=== PATIENT | female | born 1985 | race Caucasian/White ===

== ENCOUNTER 2018-04-28 18:27 | Inpatient (IN) | payer OTHER ==
[~2018-04-28] VITALS: Ht 167.6 cm; Wt 61.2 kg
[2018-04-28 18:30] VITALS: BP 133/90
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
--- NOTE | 2018-04-28 18:34 | NUR ---
PT PLACED ON BED DELAY AT THIS TIME
--- NOTE | 2018-04-28 19:17 | NUR ---
PATIENT ASSISTED BY CHARGE NURSE WILMER León AT THIS TIME.
--- NOTE | 2018-04-28 19:32 | NUR ---
Dr. Stern evaluating patient at bedside.
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
[2018-04-28] MEDS ORDERED: diphenhydrAMINE 50 MG/ML VIAL IVP ONE (19:40)
[2018-04-28] MEDS ORDERED: LORazepam 2 MG/ML VIAL IVP ONE (19:40)
[2018-04-28] MEDS ORDERED: HALOPERIDOL IM 5 MG/ML VIAL IM ONE (19:40)
--- NOTE | 2018-04-28 19:45 | NUR ---
PATIENT IN 4 POINT RESTRAINTS. CMS INTACT.
--- NOTE | 2018-04-28 20:00 | NUR ---
PATIENT IN 4 POINT RESTRAINTS. CMS INTACT.
--- NOTE | 2018-04-28 20:00 | NUR ---
PATIENT RESTING AT THIS TIME. NO SIGNS OF DISTRESS.
[2018-04-28 20:01] LABS: BASOPHILS # (AUTO) 0.1 K/uL (0.00-0.22); BASOPHILS % (AUTO) 0.6 % (0.0-2.0); EOSINOPHILS # (AUTO) 0.1 K/uL (0-0.4); EOSINOPHILS % (AUTO) 0.6 % (0.0-4.0); HEMATOCRIT 40.2 % (36-48); HEMOGLOBIN 13.3 g/dL (12.0-16.0); LYMPHOCYTES % (AUTO) 13.1 % (20.5-51.1); MEAN CORPUSCULAR HEMOGLOBIN 27 pg (27-31); MEAN CORPUSCULAR HGB CONC 33 g/dL (33-37); MEAN CORPUSCULAR VOLUME 81.6 fL (80-94); MONOCYTES # (AUTO) 1.1 K/uL (0.8-1.0); MONOCYTES % (AUTO) 7.4 % (1.7-9.3); NEUTROPHILS # (AUTO) 11.8 K/uL (1.8-7.7); NEUTROPHILS % (AUTO) 78.3 % (42.2-75.2); PLATELET COUNT (AUTO) 298 K/uL (140-450); RED BLOOD CELL COUNT(AUTO) 4.92 MIL/uL (4.20-5.40); RED CELL DISTRIBUTION WIDTH 14.7 % (11.6-13.7)
--- NOTE | 2018-04-28 20:10 | NUR ---
Note prosperone in ED - 04/28/18 at 2200 by MEDDCV PATIENT YELLING OBSCENITIES AT ER STAFF. ER MADE AWARE.
--- NOTE | 2018-04-28 20:14 | NUR ---
PT MOVED TO BED 5
--- NOTE | 2018-04-28 20:15 | NUR ---
PATIENT IN 4 POINT RESTRAINTS. CMS INTACT.
[2018-04-28 20:24] LABS: PROTHROMBIN TIME 10.7 secs (10.8-13.4)
[2018-04-28 20:28] LABS: ALBUMIN 4.8 g/dL (3.4-5.0); ANION GAP 16.6 (8-16); ASPARTATE AMINOTRANSFERASE 29 U/L (15-37); CARBON DIOXIDE 23.6 mmol/L (21-32); CHLORIDE 103 mmol/L (98-107); CREATININE 0.9 mg/dL (0.6-1.3); GFR ARICAN-AMERICAN 92 mL/min (>90); GLUCOSE 106 mg/dL (74-106); POTASSIUM 3.2 mmol/L (3.5-5.1); SODIUM SERUM 140 mmol/L (136-145); TOTAL BILIRUBIN 0.6 mg/dL (0.0-1.0); UREA NITROGEN, BLOOD 24 mg/dL (7-18)
[2018-04-28 20:28] LABS: BARBITURATE, URINE NEG. ng/ml (NEG <=200); BENZODIAZEPINE, URINE NEG. ng/mL (NEG <=200); CANNABINOID, URINE NEG. ng/mL (NEG <=50); COCAINE, URINE NEG. ng/mL (NEG <=300); OPIATE, URINE NEG. ng/mL (NEG <=2000); PHENCYCLIDINE SCREEN,URINE NEG. ng/mL (NEG <=25)
[2018-04-28 20:30] LABS: ACETAMINOPHEN < 0.5 ug/ml (10-30); SALICYLATE < 2.8 mg/dL (2.8-20.0)
--- NOTE | 2018-04-28 20:30 | NUR ---
PATIENT IN 4 POINT RESTRAINTS. CMS INTACT.
--- NOTE | 2018-04-28 20:30 | NUR ---
PATIENT RESTING AT THIS TIME. NO SIGNS OF DISTRESS.
--- NOTE | 2018-04-28 20:45 | NUR ---
PATIENT IN 4 POINT RESTRAINTS. CMS INTACT.
--- NOTE | 2018-04-28 21:00 | NUR ---
PATIENT IN 4 POINT RESTRAINTS. CMS INTACT.
--- NOTE | 2018-04-28 21:00 | NUR ---
PATIENT RESTING AT THIS TIME. NO SIGNS OF DISTRESS.
--- NOTE | 2018-04-28 21:15 | NUR ---
PATIENT IN 4 POINT RESTRAINTS. CMS INTACT.
--- NOTE | 2018-04-28 21:30 | NUR ---
PATIENT IN 4 POINT RESTRAINTS. CMS INTACT.
--- NOTE | 2018-04-28 21:31 | NUR ---
PATIENT RESTING AT THIS TIME. NO SIGNS OF DISTRESS.
--- NOTE | 2018-04-28 21:45 | NUR ---
PATIENT IN 4 POINT RESTRAINTS. CMS INTACT.
--- NOTE | 2018-04-28 22:00 | NUR ---
PATIENT RESTING AT THIS TIME. NO SIGNS OF DISTRESS.
--- NOTE | 2018-04-28 22:04 | NUR ---
PER ORDER FROM RN PT REMOVED FROM 4 POINT RESTRAINTS
--- NOTE | 2018-04-28 22:05 | NUR ---
PATIENT SLEEPING, CMS INTACT.
--- NOTE | 2018-04-28 23:26 | NUR ---
[facility]: [facility], spoke with Grace, no beds available, packet was faxed. [facility], spoke with Piedad, no beds available, packet was faxed. [facility], spoke with Johana, no beds available. [facility], spoke with Radha, no beds available. [facility], spoke with Kylie, no beds available, packet was faxed. [facility], spoke with Silvio, no beds available. [facility], spoke with Fernando, no beds available.
--- NOTE | 2018-04-28 23:37 | NUR ---
PT TAKEN TO CT
--- NOTE | 2018-04-28 23:59 | NUR ---
PT RETURN FROM CT
[2018-04-29] MEDS ORDERED: ONDANSETRON 4 MG/2 ML VIAL IVP PRN (00:30)
[2018-04-29] MEDS ORDERED: MORPHINE SULFATE 2 MG/ML SYR IVP PRN (00:30)
[2018-04-29] MEDS ORDERED: LORazepam 2 MG/ML VIAL IVP PRN (00:30)
[2018-04-29] MEDS ORDERED: ACETAMINOPHEN 325 MG TAB PO PRN (00:30)
--- NOTE | 2018-04-29 00:50 | NUR ---
RECEIVED REPORT FROM ED NURSE, WILL TRANSPORT PT WITH EMT TO ICU BED 6
--- NOTE | 2018-04-29 00:53 | NUR ---
Pt transferred to ICU 6 via BED WITH MERLYN RAMOS. REPORT GIVEN BY MERLYN SORIA TO FIELD NATURALISTMERLYN RAMOS.
[2018-04-29 00:55] VITALS: BP 101/56
--- NOTE | 2018-04-29 00:55 | NUR ---
PT SEDATED, AROUSABLE TO TOUCH. GCS 9 PERRL SLUGGISH 3+ NSR ON MONITOR, S1 S2 HEARD, NO EDEMA NOTED. LUNGS CLEAR TO AUSCULTATION. ABD SOFT NON DISTENDED. SKIN INTACT. PERIPHERAL IV TO L HAND SALINE LOCK. PER ED NURSE, BELONGINGS WITH SECURITY. PT ON 1:1 SUPERVISION FOR 5150 HOLD. BED LOCKED IN LOWEST POSITION, ALL SAFETY PRECAUTIONS ASSESSED AND IN PLACE. AWAITING PSYCH FACILITY PLACEMENT. NO S/S OF ACUTE DISTRESS NOTED. WILL CONTINUE TO OBSERVE.
--- NOTE | 2018-04-29 02:38 | NUR ---
PT ASLEEP, APPEARS COMFORTABLE IN BED, NO S/S OF ACUTE DISTRESS NOTED. WILL CONTINUE TO OBSERVE.
--- NOTE | 2018-04-29 03:00 | NUR ---
PT ASLEEP, AROUSABLE. DENIES SUICIDAL IDEATION @ THIS TIME. NO COMBATIVE BEHAVIOR NOTED.
--- NOTE | 2018-04-29 04:00 | NUR ---
PT ASLEEP, RESTING COMFORTABLY. VSS WNL. NO S/S OF ACUTE DISTRESS NOTED. WILL CONTINUE TO OBSERVE.
--- NOTE | 2018-04-29 06:00 | NUR ---
PT AWAKE, WANTING TO DRINK WATER. DENIES SUICIDAL IDEATION NO COMBATIVE BEHAVIOR. PT IS CALM DENIES PAIN @ THIS TIME.
--- NOTE | 2018-04-29 07:05 | NUR ---
RECEIVED REPORT FROM DAY SHIFT NURSE. PT SITTING IN BED, EATING. NO C/O PAIN. PT IS CALM AND COOPERATIVE AT THIS TIME. NO RESP DISTRESS. PT IS ON 5150 HOLD. 1:1 SITTER IN THE ROOM. SAFETY PRECAUTION IN PLACE. Addendum: 04/29/18 at 1937 by Sol Sow RN DISCARD ABOVE NOTE. WRONG TIME.
--- NOTE | 2018-04-29 07:05 | NUR ---
RECEIVED REPORT FROM RISK AND INSURANCE CONSULTANT RN FOR CONTINUITY OF CARE. PATIENT IS AAOX2, SEDATED FROM ATIVAN PER RISK AND INSURANCE CONSULTANT RN. VS STABLE, DENIES ANY PAIN. BREATHING IS UNLABORED AND EVEN. BILATERAL LUNG SOUNDS CLEAR, S1 AND S2 HEARD. PATIENT SKIN IS INTACT, WARM AND DRY. SHE HAS A PERIPHERAL IV SITE TO LEFT HAND IN PLACE. HOB IS SEMI-FOWLERS, BED LOCKED IN LOWEST POSITION. PATIENT IS ON 1:1 SUPERVISION FOR 5150 HOLD. ALL SAFETY PRECAUTIONS ASSESSED AND IN PLACE. NO SIGNS OF DISTRESS NOTED. WILL CONTINUE TO MONITOR
--- NOTE | 2018-04-29 07:30 | NUR ---
ENODRSED PT TO DAY SHIFT. FOR CONTINUITY OF CARE
--- NOTE | 2018-04-29 07:39 | NUR ---
SPOKE WITH DR. PRECIADO REGARDING PSYCH CONSULT FOR PATIENT. STATES THAT HE WILL CONTACT DR. DEVRIES FOR CONSULT.
--- NOTE | 2018-04-29 07:43 | NUR ---
PROVIDED PATIENT WITH BREAKFAST TRAY, PATIENT STATES THAT SHE IS NOT HUNGRY AT THIS MOMENT SHE JUST WANTS THE COFFEE.
[2018-04-29 08:00] VITALS: BP 116/78
[2018-04-29] MEDS: ENOXAPARIN 40 MG/0.4 ML SYR SUBQ SCH (08:18)
--- NOTE | 2018-04-29 08:30 | NUR ---
PATIENT HAS BEEN SCREENED AND CATEGORIZED LOW NUTRITION RISK. PATIENT WILL BE SEEN WITHIN 7 DAYS OF ADMISSION. 05/05/[address]
--- NOTE | 2018-04-29 08:31 | NUR ---
DR. PRECIADO IN TO SEE AND EXAMINE PATIENT, UPDATED ON PATIENT'S CONDITION, AWARE THAT PATIENT WAS MEDICALLY CLEARED IN ER BY DR. LAL HOWEVER WAS NOT ABLE TO BE PLACE IN PSYCH FACILITY, DISCUSSED THAT DR. RAZO WILL BE COMING FOR PSYCH EVAL. WILL FOLLOW UP ON ANY ORDERS.
--- NOTE | 2018-04-29 08:50 | NUR ---
[facility] aware patient is in unit. will continue to look for placement throughout shift. will update unit when new information has been received.
--- NOTE | 2018-04-29 09:10 | NUR ---
DR. RAZO TO SEE PATIENT FOR PSYCH EVAL, STATES PATIENT STILL NEEDS TO BE ON 5150 HOLD, WILL FOLLOW UP ON ANY ORDERS.
--- NOTE | 2018-04-29 10:18 | NUR ---
ASSISTED PATIENT TO BEDSIDE COMMODE, PATIENT HAS A VERY UNSTEADY GAIT. PATIENT WAS ABLE TO VOID AND HAD 1 LARGE BM. NO SIGNS OF DISTRESS NOTED. WILL CONTINUE TO MONITOR.
--- NOTE | 2018-04-29 11:30 | NUR ---
Specialty Molder Notes: I attempted to meet with patient during screen to discuss, confirm, and gather patient's additional information; and or to asses patient's needed services upon discharge. Patient was not awake and attempted to wake her up and she open her eyes however; turn around and fall asleep again. Patient was unable to verbalized and express needs.
--- NOTE | 2018-04-29 12:08 | NUR ---
PROVIDED PATIENT WITH LUNCH TRAY, PATIENT TOLERATED WELL. NO SIGNS OF DISTRESS NOTED, ALL SAFETY PRECAUTIONS IN PLACE.
--- NOTE | 2018-04-29 12:30 | NUR ---
PATIENT PULLED OUT IV, SITE COVERED WITH DRESSING. NO SIGNS OF DISTRESS NOTED,VS STABLE. WILL CONTINUE TO MONITOR
--- NOTE | 2018-04-29 12:45 | NUR ---
No updates from contacted facilities at this time. [facility] in process of reviewing charts s/w Beata. No Bed vacancies at the following facilities: [facility] s/w Jorge [facility] s/w [facility] s/[facility] s/w Den[facility] s/w Tiffany will continue to look for placement throughout shift.
--- NOTE | 2018-04-29 13:31 | NUR ---
CM NOTE ADMISSION REVIEW DONE. INITIAL REVIEW FAXED TO [facility] [phone] MERRY # [phone]
--- NOTE | 2018-04-29 13:59 | NUR ---
PATIENT REMOVED FALL RISK ARM BAND, STATES THAT SHE DOESN'T WANT IT ON. EDUCATED ON FALL RISK SAFETY, HOWEVER PATIENT REFUSED TO PUT FALL RISK ARM BAND. FALL RISK SIGNS ARE IN PLACE, PATIENT HAS ON YELLOW GOWN AND YELLOW SOCKS PER PROTOCOL. WILL CONTINUE TO MONITOR
--- NOTE | 2018-04-29 14:09 | NUR ---
PATIENT IS AWAKE AND EATING CRACKERS AND APPLE JUICE, NO SIGNS OF DISTRESS NOTED. WILL CONTINUE TO MONITOR
--- NOTE | 2018-04-29 15:00 | NUR ---
Real Estate Lawyer Notes: I attempted to call Patient's mother Alba Lackey at to discuss and gather Patient's additional information. Patient's mother was not available and I left her a voice mail MSG with my direct contact number and a request for a call back.
--- NOTE | 2018-04-29 15:04 | NUR ---
CALLED DR. PRECIADO REGARDING PATIENT PULLING OUT IV, STATES THAT IT IS OK TO CHANGE PRN ATIVAN IVP TO PRN ATIVAN PO.
[2018-04-29] MEDS: LORazepam 1 MG TAB PO PRN ×2 (15:20→21:21)
--- NOTE | 2018-04-29 15:23 | NUR ---
PATIENT WAS OBSERVED PACING ROOM, STATING THAT SHE WANTS TO GO HOME, DOES NOT FEEL COMFORTABLE IN THE BED. GIVEN PRN ATIVAN 1MG PO, TOLERATES WELL. WILL CONTINUE TO MONITOR
--- NOTE | 2018-04-29 15:50 | NUR ---
TRANSFERRED PATIENT VIA WHEELCHAIR TO [facility], PATIENT PRESENTS NO SIGNS OF DISTRESS DURING TRANSFER. ENDORSED BEDSIDE REPORT TO [facility] RN FOR CONTINUITY OF CARE. PROVIDED PATIENT WITH DINNER TRAY, NO SIGNS OF DISTRESS NOTED.
[2018-04-29 16:00] VITALS: BP 121/71
[2018-04-29 18:00] VITALS: BP 132/85
--- NOTE | 2018-04-29 18:00 | NUR ---
ASSUMED CARE FROM ICU -RN. PT AAOX3. NO SOB NOTED. NO C/O PAIN AT THIS TIME. WITH ONE IS TO ONE SITTER AT THE BEDSIDE FOR 5150 HOLD. PT EATING DINNER. CALM. NO SIGNS OF HARMING SELF OR OTHER PEOPLE AT THIS TIME. WILL CONTINUE TO MONITOR.
--- NOTE | 2018-04-29 19:05 | NUR ---
RECEIVED REPORT FROM DAY SHIFT NURSE. PT SITTING IN BED, EATING. NO C/O PAIN. PT IS CALM AND COOPERATIVE AT THIS TIME. NO RESP DISTRESS. PT IS ON 5150 HOLD. 1:1 SITTER IN THE ROOM. SAFETY PRECAUTION IN PLACE.
--- NOTE | 2018-04-29 19:13 | NUR ---
PT AWAKE, NO SOB NOTED. NO COMPLAINTS MADE AT THIS TIME. ENDORSED TO NEXT SHIFT NURSE FOR CONTINUITY OF CARE.
--- NOTE | 2018-04-29 19:30 | NUR ---
ASSISTED PT TO BATHROOM AND BACK TO BED. NO DISTRESS NOTED.
--- NOTE | 2018-04-29 21:22 | NUR ---
PT WENT TO THE BATHROOM WITH ASSIST. PT WENT BACK TO BED, AGITATED. ATIVAN 1 MG PO GIVEN.
--- NOTE | 2018-04-29 22:09 | NUR ---
PT STATED SHE WANTED TO GO TO THE BATHROOM TO URINATE. PT ASSISTED BY 2 NURSES. PT BEING RUDE TO NURSES. PT BACK TO BED.
--- NOTE | 2018-04-29 23:50 | NUR ---
PT SLEEPING. NO S/S OF PAIN. NO S/S OF RESP DISTRESS. 1:1 SITTER IN THE ROOM.
[2018-04-30] VITALS: BP 127/66
--- NOTE | 2018-04-30 01:10 | NUR ---
PT WAS AGITATED AND HOSTILE TO NURSES. TRYING TO GET OUT OF THE BED. PT HAS UNSTEADY GAIT. TRIED TO TALK TO PT BUT SHE'S NOT LISTENING AND GOT ANGRY WITH NURSES. WILL PAGE DR. PRECIADO.
--- NOTE | 2018-04-30 01:15 | NUR ---
KULWINDER PRECIADO. DR. HANSON DELI MANAGER. ORDERED HALDOL 5MG IM Q6HRS PRN FOR AGITATION.
--- NOTE | 2018-04-30 01:25 | NUR ---
PT LYING IN BED AND CALM AT THIS TIME. SAFETY PRECAUTION IN PLACE. 1:1 SITTER IN THE ROOM.
--- NOTE | 2018-04-30 01:30 | NUR ---
AWARE OF PT'S POTASSIUM LEVEL 3.2. WILL ENDORSED TO DAY SHIFT NURSE FOR DR. PRECIADO.
--- NOTE | 2018-04-30 01:37 | NUR ---
PT SLEEPING. NO S/S OF DISTRESS NOTED.
[2018-04-30] MEDS: HALOPERIDOL IM 5 MG/ML VIAL IM PRN ×2 (02:13→10:11)
--- NOTE | 2018-04-30 02:13 | NUR ---
PT WAS SCREAMING,CURSING, GOT OUT OF THE BED AND TRIED TO GET OUT OF THE ROOM. REFUSED TO GO BACK TO BED. SECURITY CAME IN. ASSISTED PT BACK TO BED. HALDOL 5 MG IM GIVEN.
--- NOTE | 2018-04-30 02:30 | NUR ---
PT SITTING QUIETLY ON BED. NO C/O PAIN OR SOB. SAFETY PRECAUTION IN PLACE.
--- NOTE | 2018-04-30 03:00 | NUR ---
PT IN BED, SLEEPING. RESP EVEN AND UNLABORED. NO S/S OF PAIN.
--- NOTE | 2018-04-30 05:20 | NUR ---
PT SLEEPING. NO S/S OF OF RESP DISTRESS.
--- NOTE | 2018-04-30 07:12 | NUR ---
PT SLEEPING. NO S/S OF DISTRESS. ENDORSED PT TO DAY SHIFT NURSE. PT IN STABLE CONDITION.
--- NOTE | 2018-04-30 07:30 | NUR ---
RECEIVED PT FROM PM NURSE, PT SLEEPING BUT ABLE TO OPEN EYES WHEN DOING INITIAL ASSESSMENT. ROOM AIR, NO S/S OF RESPIRATORY DISTRESS NOTED, LUNG SOUND CLEAR,PT ABLE TO MOVE ALL HER EXTREMITIES BUT MODERATE WEAKNESS NOTED. PT IS 1:1 SITTER, SAFETY PRECAUTION IN PLACE, WILL CONTINUE TO MONITOR.
[2018-04-30 08:00] VITALS: BP 132/62
--- NOTE | 2018-04-30 08:00 | NUR ---
PT SITTING IN BED AND EATING BREAKFAST. PT DRINK ORANGE JUICE AND SODA ONLY.
[2018-04-30] MEDS: ENOXAPARIN 40 MG/0.4 ML SYR SUBQ SCH (09:20)
--- NOTE | 2018-04-30 09:36 | NUR ---
DR. PRECIADO IN TO SEE PT, MADE HIM AWARE OF K LEVEL 3.2
--- NOTE | 2018-04-30 10:00 | NUR ---
PT WOKE UP AND STATED SHE NEEDS TO GO BATHROOM, OFFERED PT BED PEREZ, PT REFUSED. ASSISTED PT TO BATHROOM WITH ORSSI, AFTER PT CAME BACK TO HER ROOM , PT REFUSED TO GO TO BED AND YELLED AT NURSE" GO GET MY CLOTHES, I WANT TO GO HOME, I DO NOT WANT TO WEAR THE HOSPITAL SHIT, GIVE ME ORANGE JUICE ". ROSSI GOT ONE ORANGE JUICE FOR PT. Addendum: 04/30/18 at 1023 by Wendi Gomes RN HALDOL GIVEN TO PT PER ORDER AT 1011
--- NOTE | 2018-04-30 10:01 | NUR ---
PT KICKED STUDENT NURSE WHILE ASSISTING PT TO BED. STUDENT NURSE WAS NOT HURT.
[2018-04-30] MEDS ORDERED: POTASSIUM CHLORIDE 10 MEQ TABER PO SCH (10:40)
--- NOTE | 2018-04-30 11:37 | NUR ---
40 MG K DUR PO GIVEN TO PT. PT TOLERATED WELL
--- NOTE | 2018-04-30 13:45 | NUR ---
PT IS AWAKE, ROSSI ASSISTED PT TO BATHROOM.
--- NOTE | 2018-04-30 13:50 | NUR ---
PT SITTING AT BEDSIDE TO EAT LUNCH. PT DOES NOT HAVE A GOOD APPETITE.
[2018-04-30 15:44] VITALS: BP 117/71
--- NOTE | 2018-04-30 16:00 | NUR ---
PT SLEEPING, ABLE TO WAKE UP WHEN ASSESS PATIENT, NO S/S OF RESPIRATORY DISTRESS NOTED.
--- NOTE | 2018-04-30 18:12 | NUR ---
PT SLEEPING, ABLE TO WAKE UP WHEN ASSESS PATIENT, NO S/S OF RESPIRATORY DISTRESS NOTED.
--- NOTE | 2018-04-30 18:45 | NUR ---
PT'S MOTHER AND BROTHER IN TO SEE PT, UPDATED PT'S CONDITION. MADE THEM AWARE WE ARE WAITING FOR PLACEMENT. TOLD PT'S MOTHER TO WAKE UP PT TO TALK TO HER, PT'S MOTHER STATED " SHE IS UPSET TO ME, JUST TELL HER I CAME HERE BUT SHE WAS SLEEPING".
--- NOTE | 2018-04-30 19:14 | NUR ---
RECEIVED REPORT FROM DAY SHIFT NURSE DILAN Carrero RN AT BEDSIDE. PT SLEEPING IN BED- ON 5150 HOLD. PER DAY SHIFT NURSE PT IS AOX4. ON ROOM AIR, NO IV SITE. NO S/S OF RESPIRATORY DISTRESS OR DISCOMFORT NOTED AT THIS TIME. BED IN LOWEST POSITION, BED BREAKS ON, BED ALARM ON, FALL PRECAUTIONS IN PLACE- UNSTEADY DUE TO MEDICATIONS. BED SIDE TABLE AND SITTER WITHIN REACH. PT WAITING FOR PLACEMENT- MOTHER TRAVIS REQUESTED SHE BE CALLED SOON PLACED TO KNOW WHERE HER DAUGHTER WILL BE AT. WILL CONTINUE TO MONITOR.
[2018-04-30 20:00] VITALS: BP 123/74
--- NOTE | 2018-04-30 20:00 | NUR ---
VITAL SIGNS TAKEN AND TOLERATED WELL. NO S/S OF RESPIRATORY DISTRESS OR DISCOMFORT NOTED AT THIS TIME. WILL CONTINUE TO MONITOR.
--- NOTE | 2018-04-30 22:00 | NUR ---
PT CONTINUES TO SLEEP IN BED. NO S/S OF RESPIRATORY DISTRESS OR DISCOMFORT NOTED AT THIS TIME. WILL CONTINUE TO MONITOR.
[2018-05-01] VITALS: BP 124/78
--- NOTE | 2018-05-01 | NUR ---
VITAL SIGNS TAKEN AND TOLERATED WELL. ASSISTED PT TO USE RESTROOM. PT URINATED AND SMALL WATERY STOOL. GOWN AND UNDERWEAR WERE SOILED. ASSISTED PT WITH NEW GOWN AND UNDERWEAR. ASSISTED PT BACK TO BED. NO S/S OF RESPIRATORY DISTRESS OR DISCOMFORT NOTED AT THIS TIME. WILL CONTINUE TO MONITOR.
--- NOTE | 2018-05-01 02:00 | NUR ---
PT CONTINUES TO SLEEP. NO S/S OF RESPIRATORY DISTRESS OR DISCOMFORT NOTED AT THIS TIME. WILL CONTINUE TO MONITOR.
--- NOTE | 2018-05-01 04:00 | NUR ---
PT CONTINUES TO SLEEP. NO S/S OF RESPIRATORY DISTRESS OR DISCOMFORT NOTED AT THIS TIME. WILL CONTINUE TO MONITOR.
--- NOTE | 2018-05-01 05:20 | NUR ---
ASSISTED PT TO THE RESTROOM. PT AMBULATING WITH MINIMAL HELP. PT REQUESTED ORANGE JUICE AND WAS PROVIDED. PT ASKING WHAT TIME IT IS AND WHEN BREAKFAST ARRIVES. REMINDED PT OF FRUIT CUP AT BEDSIDE AND PT DECIDED TO EAT IT WELL. PT CONTINUES TO SLEEP. NO S/S OF RESPIRATORY DISTRESS OR DISCOMFORT NOTED AT THIS TIME. WILL CONTINUE TO MONITOR.
--- NOTE | 2018-05-01 06:00 | NUR ---
PT CONTINUES TO SLEEP. NO S/S OF RESPIRATORY DISTRESS OR DISCOMFORT NOTED AT THIS TIME. WILL CONTINUE TO MONITOR.
--- NOTE | 2018-05-01 06:38 | NUR ---
ASSISTED PT TO THE RESTROOM. PT URINATED AND HAD ANOTHER SMALL WATERY STOOL. PT BACK IN BED. NO S/S OF RESPIRATORY DISTRESS OR DISCOMFORT NOTED AT THIS TIME. WILL CONTINUE TO MONITOR.
--- NOTE | 2018-05-01 07:30 | NUR ---
ENDORSED PT CARE TO DAY SHIFT NURSE SITAL-RN FOR CONTINUITY OF CARE.
[2018-05-01 08:00] VITALS: BP 122/80
[2018-05-01 08:03] LABS: BASOPHILS % (AUTO) 0.6 % (0.0-2.0); EOSINOPHILS # (AUTO) 0.3 K/uL (0-0.4); EOSINOPHILS % (AUTO) 4.4 % (0.0-4.0); HEMATOCRIT 41.9 % (36-48); LYMPHOCYTES # (AUTO) 2.7 K/uL (2.5-16.5); LYMPHOCYTES % (AUTO) 40.4 % (20.5-51.1); MEAN CORPUSCULAR HEMOGLOBIN 28 pg (27-31); MEAN CORPUSCULAR HGB CONC 33 g/dL (33-37); MEAN CORPUSCULAR VOLUME 83.2 fL (80-94); MONOCYTES # (AUTO) 0.4 K/uL (0.8-1.0); MONOCYTES % (AUTO) 6.7 % (1.7-9.3); NEUTROPHILS # (AUTO) 3.2 K/uL (1.8-7.7); NEUTROPHILS % (AUTO) 47.9 % (42.2-75.2); PLATELET COUNT (AUTO) 265 K/uL (140-450); RED BLOOD CELL COUNT(AUTO) 5.04 MIL/uL (4.20-5.40); RED CELL DISTRIBUTION WIDTH 14.6 % (11.6-13.7); WHITE BLOOD COUNT (AUTO) 6.6 K/uL (4.8-10.8)
--- NOTE | 2018-05-01 08:30 | NUR ---
ASSISTED PT TO THE BATHROOM. VOIDED WITHOUT ANY DIFFICULTY. NEEDS ASSISTANCE WHEN AMBULATING. UNSTEADY ON HER FEET. REMINDED PT NOT TO GET OUT OF BED WITHOUT ASSISTANCE.
[2018-05-01] MEDS: ENOXAPARIN 40 MG/0.4 ML SYR SUBQ SCH (09:50)
--- NOTE | 2018-05-01 11:15 | NUR ---
PSYCH. REEVAL. DONE BY DR. DEVRIES AT BEDSIDE. OFF 5150 NOW.
--- NOTE | 2018-05-01 11:45 | NUR ---
CALLED PT'S MOTHER TRAVIS. SPOKE TO DR. DEVRIES RE PT'S CONDITION.
--- NOTE | 2018-05-01 12:00 | NUR ---
SPOKE TO PT'S MOTHER STATES THAT SHE DOES NOT WANT THE PT. TO GO HOME UNTIL SHE'S BEEN STARTED ON HER PSYCH. MEDS. AND THAT SHE CAN BE SURE THAT PT. WILL BE GIVEN PRESCRIPTIONS GOOD FOR AT LEAST FOR 1 MONTH.
--- NOTE | 2018-05-01 12:15 | NUR ---
CHARGE NURSE NERY MIRAMONTES AND NOTIFIED DR. PRECIADO RE: DR. DEVRIES'S RECOMMENDATIONS AND CONVERSATION WITH PT'S MOTHER.
[2018-05-01] MEDS ORDERED: FLUoxetine 20 MG CAP PO SCH (13:05)
[2018-05-01] MEDS ORDERED: METHOCARBAMOL 500 MG TAB PO SCH (13:05)
[2018-05-01] MEDS ORDERED: traZODone 50 MG TAB PO SCH (13:20)
--- NOTE | 2018-05-01 13:30 | NUR ---
ADMINISTERED MEDS ORDERED TO PT. CALM AND COOPERATIVE. SEEN BY . PT LYING ON HER BED. NO SIGN OF DISTRESS. TOLERATED MEDS WELL. WILL CONTINUE TO MONITOR PT.
[2018-05-01 16:37] VITALS: BP 122/66
--- NOTE | 2018-05-01 17:00 | NUR ---
CHECKED ON PT. SLEEPING IN HER BED. NO SIG OF DISTRESS. PT ON 1:1 SITTER. OBSERVING PT. WILL CONTINUE TO MONITOR PT.
--- NOTE | 2018-05-01 19:15 | NUR ---
ENDORSED PT TO PM NURSE. PT IN STABLE CONDITION.
--- NOTE | 2018-05-01 19:16 | NUR ---
RECEIVED REPORT FROM DAY SHIFT NURSE CARMINA-RN AT BEDSIDE. PT RESTING IN BED. AOX3, ON ROOM AIR WITH NO IV SITE. DISCUSSED PLAN OF CARE AND PT VERBALIZED UNDERSTANDING. NO S/S OF RESPIRATORY DISTRESS OR DISCOMFORT NOTED AT THIS TIME. BED IN LOWEST POSITION, BED BREAKS ON, BOTH SIDE RAILS UP. BED SIDE TABLE AND CALL LIGHT ARE WITHIN REACH. WILL CONTINUE TO MONITOR.
[2018-05-01 20:00] VITALS: BP 136/88
--- NOTE | 2018-05-01 20:00 | NUR ---
VITAL SIGNS TAKEN AND TOLERATED WELL. NO S/S OF RESPIRATORY DISTRESS OR DISCOMFORT NOTED AT THIS TIME. WILL CONTINUE TO MONITOR.
--- NOTE | 2018-05-01 22:00 | NUR ---
PT CONTINUES TO SLEEP. NO S/S OF RESPIRATORY DISTRESS OR DISCOMFORT NOTED AT THIS TIME. WILL CONTINUE TO MONITOR.
[2018-05-02] VITALS: BP 109/69
--- NOTE | 2018-05-02 | NUR ---
PT CONTINUES TO SLEEP. NO S/S OF RESPIRATORY DISTRESS OR DISCOMFORT NOTED AT THIS TIME. WILL CONTINUE TO MONITOR.
--- NOTE | 2018-05-02 02:00 | NUR ---
PT CONTINUES TO SLEEP. NO S/S OF RESPIRATORY DISTRESS OR DISCOMFORT NOTED AT THIS TIME. WILL CONTINUE TO MONITOR.
--- NOTE | 2018-05-02 04:00 | NUR ---
PT CONTINUE TO SLEEP. NO S/S OF RESPIRATORY DISTRESS OR DISCOMFORT NOTED AT THIS TIME. WILL CONTINUE TO MONITOR.
--- NOTE | 2018-05-02 06:00 | NUR ---
PT RESTING IN BED. NO S/S OF RESPIRATORY DISTRESS OR DISCOMFORT NOTED AT THIS TIME. WILL CONTINUE TO MONITOR.
--- NOTE | 2018-05-02 06:08 | NUR ---
NO vacancy at the following facilities [facility] intake Serena Terrazas - intake Regina Solorzano - F[facility] intake will endorsed to Am shift to continue to look for placement.
--- NOTE | 2018-05-02 07:19 | NUR ---
ENDORSED PT CARE TO DAY SHIFT NURSE SITAL-RN FOR CONTINUITY OF CARE.
[2018-05-02 08:00] VITALS: BP 134/82
[2018-05-02] MEDS ORDERED: METH500T18 PO (08:52)
[2018-05-02] MEDS ORDERED: TRAZ-370 PO (08:52)
[2018-05-02] MEDS ORDERED: FLUO-348 PO (08:52)
[2018-05-02] MEDS ORDERED: OLAN5TAB30 PO (08:52)
[2018-05-02] MEDS ORDERED: OLANZapine 5 MG TAB PO SCH (09:00)
[2018-05-02] MEDS ORDERED: traZODone 50 MG TAB PO SCH (09:00)
[2018-05-02] MEDS ORDERED: FLUoxetine 20 MG CAP PO SCH (09:00)
[2018-05-02] MEDS ORDERED: METHOCARBAMOL 500 MG TAB PO SCH (09:00)
--- NOTE | 2018-05-02 09:00 | NUR ---
ADMINISTERED MEDS TO PT ORDERED. TOLERATED WELL. PT ASKING WHAT TIME SHE CAN BE DISCHARGED. INFORMED HER THAT WILL WORK ON HER DC ORDER ONCE ORDERS ARE AVAILABLE. PT CLAM AND COOPERATIVE . NO SIGN OF DISTRESS NOTED. WILLCONTINUE TO MONITOR PT.
[2018-05-02] MEDS: ENOXAPARIN 40 MG/0.4 ML SYR SUBQ SCH (09:17)
--- NOTE | 2018-05-02 09:19 | NUR ---
ADMINISTERED MEDS TO PT ORDERED. PT CALM AND COOPERATIVE. TOOK ALL HER MEDS. PT ASKING WHEN SHE CAN GO HOME. TALKED TO PT,TOLD PT SHE CAN LEAVE HOME TODAY. INFORMED PT THAT WILL WORK ON HER DC PAPER AFTER ADMINISTERING MED TO OTHER PT. WILL CONTINUE TO MONITOR PT.
--- NOTE | 2018-05-02 10:00 | NUR ---
INFORMED PT THAT HER DC ORDERS ARE AVAILABLE. PT SPOKE TO MOM, WILL BE PICKED UP AROUND 1 PM. INFORMED HER THAT DC PAPERS ARE READY. WILL NEED HER SIGNATURE AT THE TIME OF DISCHARGE. WILL CONTINUE TO MONITOR PT.
--- NOTE | 2018-05-02 12:15 | NUR ---
CHECKED ON PT. LYING ON HER BED. ASKING IF SHE COULD CALL HER MOTHER. MOTHER CONTACTED , STATES THAT SHE WILL BE AT HOSPITAL TO PICK HER UP IN HOUR. PT DC PAPER READY. WAITING FOR MOTHER TO PICK HER UP. WILL CONTINUE TO MONITOR PT.
--- NOTE | 2018-05-02 14:50 | NUR ---
PT DISCHARGED. GAVE ALL THE INFORMATION AND THE BAROUCHER RELATING THE WALK IN CLINIC FOR THE PSYCH ELEVATION. BROTHER VERBALISED UNDERSTANDING OF TEACHING. PRESCRIPTION AND THE DC INSTRUCTION PACKET GIVEN TO PT FAMILY. PT IN STABLE CONDITION . WALKED ON HER OWN TO FRONT DOOR OF THE HOSPITAL.
== END 2018-05-02 14:50 | disposition home or self-care (01) | DRG 425 ==
LOC: MED 18:27 → MIC 04-29 00:34 → MTU 04-29 18:03
PROVIDERS: ADMIT Internal Medicine; ATTEND Internal Medicine
DX: E87.6 Hypokalemia (principal); F25.0 Schizoaffective disorder, bipolar type; F29 Unspecified psychosis not due to a substance or known physiological condition; F63.9 Impulse disorder, unspecified; Z91.19 Patient's noncompliance with other medical treatment and regimen
CPT/HCPCS: 36415; 70450; 80053; 80305; 85025; 85610; 87081; 96372; 96374; 96375; 99291; G0480; G0482; J1200; J1630; J1650; J2060

== ENCOUNTER 2019-03-15 09:19 | Inpatient (IN) | payer OTHER ==
[~2019-03-15] VITALS: Ht 160 cm; Wt 73.9 kg
[~2019-03-15 09:19] MED LIST: FLUO-348 PO; METH500T18 PO; OLAN5TAB30 PO; TRAZ-466 PO
--- NOTE | 2019-03-15 09:19 | NUR ---
Patient BIBA BLS, transferred to bed 6. RN evaluating patient at bedside.
[2019-03-15 09:22] VITALS: BP 132/63
--- NOTE | 2019-03-15 09:22 | NUR ---
PER EMS, PATIENT HAS BEEN NON COMPLIANT WITH MEDICATIONS FOR THE PAST 10 DAYS. MOTHER ENROUTE.
[2019-03-15] MEDS ORDERED: NACL 0.9% 1,000 ML IV ONE (09:25)
--- NOTE | 2019-03-15 09:42 | NUR ---
Dr. Casiano evaluating patient at bedside.
[2019-03-15 09:50] LABS: BASOPHILS % (AUTO) 0.6 % (0.0-2.0); EOSINOPHILS # (AUTO) 0.2 K/uL (0-0.4); EOSINOPHILS % (AUTO) 2.2 % (0.0-4.0); HEMATOCRIT 39.7 % (36-48); HEMOGLOBIN 13.3 g/dL (12.0-16.0); LYMPHOCYTES # (AUTO) 2.3 K/uL (2.5-16.5); LYMPHOCYTES % (AUTO) 30.1 % (20.5-51.1); MEAN CORPUSCULAR HEMOGLOBIN 28 pg (27-31); MEAN CORPUSCULAR HGB CONC 34 g/dL (33-37); MEAN CORPUSCULAR VOLUME 81.6 fL (80-94); MONOCYTES # (AUTO) 0.4 K/uL (0.8-1.0); MONOCYTES % (AUTO) 4.8 % (1.7-9.3); NEUTROPHILS # (AUTO) 4.8 K/uL (1.8-7.7); NEUTROPHILS % (AUTO) 62.3 % (42.2-75.2); PLATELET COUNT (AUTO) 286 K/uL (140-450); RED BLOOD CELL COUNT(AUTO) 4.86 MIL/uL (4.20-5.40); RED CELL DISTRIBUTION WIDTH 14.4 % (11.6-13.7); WHITE BLOOD COUNT (AUTO) 7.7 K/uL (4.8-10.8)
[2019-03-15 09:52] LABS: APPEARANCE,URINE CLEAR (CLEAR); BILIRUBIN,URINE NEGATIVE (NEGATIVE); BLOOD, URINE 1+ (NEGATIVE); COLOR,URINE YELLOW (YELLOW); LEUKOCYTE ESTERASE ,URINE TRACE (NEGATIVE); NITRITE, URINE NEGATIVE (NEGATIVE); PH,URINE 6.5 (5.0-9.0); UGLUCOSE NEGATIVE (NEGATIVE)
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
[2019-03-15 10:09] LABS: WBC,URINE 0-5 /HPF (0-5)
[2019-03-15 10:11] LABS: ANION GAP 17.4 (8-16); CARBON DIOXIDE 22.7 mmol/L (21-32); CHLORIDE 103 mmol/L (98-107); CREATININE 0.9 mg/dL (0.6-1.3); GFR ARICAN-AMERICAN 91 mL/min (>90); GLUCOSE 125 mg/dL (74-106); POTASSIUM 3.1 mmol/L (3.5-5.1); SODIUM SERUM 140 mmol/L (136-145); UREA NITROGEN, BLOOD 9 mg/dL (7-18)
[2019-03-15 10:14] LABS: BARBITURATE, URINE NEG. ng/ml (NEG <=200); BENZODIAZEPINE, URINE NEG. ng/mL (NEG <=200); CANNABINOID, URINE NEG. ng/mL (NEG <=50); COCAINE, URINE NEG. ng/mL (NEG <=300); OPIATE, URINE NEG. ng/mL (NEG <=2000); PHENCYCLIDINE SCREEN,URINE NEG. ng/mL (NEG <=25)
[2019-03-15 10:18] LABS: ALBUMIN 4.1 g/dL (3.4-5.0); ASPARTATE AMINOTRANSFERASE 27 U/L (15-37); TOTAL BILIRUBIN 0.4 mg/dL (0.0-1.0)
[2019-03-15 10:21] LABS: ACETAMINOPHEN < 0.5 ug/ml (10-30)
--- NOTE | 2019-03-15 10:53 | NUR ---
Patient assisted onto bed martinez, elana care provided, placed in position of comfort.
[2019-03-15] MEDS ORDERED: POTASSIUM CHLORIDE 10 MEQ TABER PO ONE (11:40)
--- NOTE | 2019-03-15 11:50 | NUR ---
TALKED TO DR. VENTURA PYSCHIATRIST AND UPDATED HER ABOUT PT. PT EATING HER LUNCH.
--- NOTE | 2019-03-15 11:51 | NUR ---
Patient provided with food tray, pt tolerating well.
--- NOTE | 2019-03-15 11:53 | NUR ---
Pt speaking with Telepsych.
--- NOTE | 2019-03-15 12:19 | NUR ---
Psychiatrist recommending patient to admitted to psychiatric facility.
--- NOTE | 2019-03-15 13:45 | NUR ---
Another attempt made to call patient's mother with no answer.
--- NOTE | 2019-03-15 15:46 | NUR ---
PT WITH 1:1 SITTER . PT CALM , SITTING IN HER BED. WILL CONTINUE TO [facility] PT.
[2019-03-15] MEDS ORDERED: OLAN20TA1 PO (15:59)
[2019-03-15] MEDS ORDERED: FLUO10CA21 PO (15:59)
--- NOTE | 2019-03-15 17:04 | NUR ---
WAITING FOR THE BED AT [facility]. WITH 1:1 SITTER. PT CALM AND APPROPIATE BEHAVIOR. WILL CONTINUE TO MONITOR PT.
--- NOTE | 2019-03-15 17:20 | NUR ---
[facility] s/w [facility] no beds [facility] s/w Kin[facility] no beds [place] s/w Odette no beds [facility] s/w Yamileth no beds [facility] s/w Don no beds [facility] s/w Isai gomes faxed for wait list
--- NOTE | 2019-03-15 18:30 | NUR ---
Patient will be admitted to care of DR. BRADLEY. Admited to [facility] FLOOR. Will go to room 110B. Belongings list completed. Report to DOMINIC KEENAN. PT SATBLE AT THE TIME OF TRANSFER.
[2019-03-15] MEDS ORDERED: LORazepam 2 MG/ML VIAL IVP PRN (18:35)
[2019-03-15 18:40] VITALS: BP 138/77
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
--- NOTE | 2019-03-15 18:50 | NUR ---
DR. MARTINEZ CAME AND SPOKE WITH PATIENT.
--- NOTE | 2019-03-15 19:30 | NUR ---
AMBULATED TO BR TO VOID, BACK TO NEAR BED, INSTRUCTED TO SIT ON BED, NEEDS TO BE INSTRUCTED ON WHAT DO DO.
--- NOTE | 2019-03-15 20:00 | NUR ---
Patient's Plan of Care was discussed and reviewed with FISHER POT: SHLOMO ALBERT LVN
--- NOTE | 2019-03-15 20:37 | NUR ---
MEDICATED WITH ZYPREXA ORDERED.
[2019-03-15] MEDS ORDERED: OLANZapine 5 MG TAB PO SCH (21:00)
--- NOTE | 2019-03-15 21:00 | NUR ---
GET OUT OF THE ROOM WANTS TO SPEAK WITH MOTHER, GUIDED BACK TO ROOM. ABLE TO SPEAK WITH MOTHER IN THE PHONE. SITTING ON BED, WANT TO GO HOME, LOOKING FOR HER BELONGINGS. EXPLAINED HOSPITAL PROTOCOL AND ENCOURAGED TO LAY IN BED AND SLEEP.
--- NOTE | 2019-03-15 21:18 | NUR ---
OBEYED AFTER FEW MINUTES. LAY IN BED AND TRY TO SLEEP ON HER LEFT SIDE.
--- NOTE | 2019-03-15 22:10 | NUR ---
WOKE UP FROM SLEEP, INQUIRED ABOUT THE TIME, AMBULATED TO BR TO VOID, BACK TO BED AFTER VOIDING. BACK TO SLEEP.
[2019-03-16] VITALS: BP 125/75
--- NOTE | 2019-03-16 02:00 | NUR ---
STILL SLEEPING COMFORTABLY IN BED.
--- NOTE | 2019-03-16 04:30 | NUR ---
STILL SLEEPING COMFORTABLY.
--- NOTE | 2019-03-16 05:15 | NUR ---
AWAKE IN BED, WANTS TO GO HOME. EXPLAINED THERE'S NO DOCTOR ORDER FOR HER TO GO HOME. ADVISED TO GO BACK TO SLEEP.
--- NOTE | 2019-03-16 05:30 | NUR ---
WOKE UP AGAIN, AMBULATED X2 TO BR TO VOID. SITS ON THE BED, DOING NOTHING. SUGGESTED TO GO BACK TO SLEEP.
--- NOTE | 2019-03-16 06:33 | NUR ---
RESTING IN BED, SLEEPING. NO BEHAVIORAL ISSUE DURING SHIFT. CONDITION REMAIN STABLE. WILL ENDORSE TO NEXT SITTER AND AM NURSE FOR CONTINUITY OF CARE.
--- NOTE | 2019-03-16 07:15 | NUR ---
Received report from charge nurse Nini. Pt sitting up at edge of bed, no signs of distress, respirations even & nonlabored. Sitter by doorway for continuous monitoring. Addendum: 03/16/19 at 0743 by Annelise Boone RN Addendum: Right hand IV saline lock intact & asymptomatic.
--- NOTE | 2019-03-16 07:43 | NUR ---
Pt amb from toilet to bed with standby assistance. Pt with wobbly gait & impaired safety awareness. Pt assisted to sitting at edge of bed. Vital signs obtained. Asked pt if she has any ideas of harming herself. Pt angrily yells "why don't you all mind your [employer] business? I just want to go home." Explained that pt is still on 5150 hold for walking into traffic. Pt remained quiet & asked what time is breakfast. Reassurance provided. Sitter at bedside for close monitoring.
[2019-03-16 08:00] VITALS: BP 136/89
[2019-03-16] MEDS ORDERED: FLUoxetine 20 MG CAP PO SCH (09:00)
--- NOTE | 2019-03-16 09:01 | NUR ---
PATIENT HAS BEEN SCREENED AND CATEGORIZED LOW NUTRITION RISK. PATIENT WILL BE SEEN WITHIN 7 DAYS OF ADMISSION. 03/22/[address]
[2019-03-16 09:24] LABS: ANION GAP 16.8 (8-16); CARBON DIOXIDE 24.8 mmol/L (21-32); CREATININE 0.9 mg/dL (0.6-1.3); POTASSIUM 3.6 mmol/L (3.5-5.1)
--- NOTE | 2019-03-16 10:15 | NUR ---
Pt sitting quietly at edge of bed. Pt states she's "ok" when asked how she is doing. Sitter remains at bedside. Right hand IV saline intact & asymptomatic.
--- NOTE | 2019-03-16 13:46 | NUR ---
CONTACTED PATIENT'S PCP DR. LIV BRITO AT [phone], SPOKE TO MARIA INES. PROVIDED ME FOLLOW UP VISIT OF MAR 31, 2029 AT 0950. COPY OF APPOINTMENT PROVIDED TO THE PATIENT. ABLE TO VERBALIZE UNDERSTANDING.
--- NOTE | 2019-03-16 14:15 | NUR ---
Pt requested to shower. Pt able to amb to shower room. Able to shower independently. Clean gown & underwear provided. Pt amb back to room after shower. No signs of distress. Addendum: 03/16/19 at 1740 by Annelise Boone RN Addendum: Right hand IV discontinued prior to shower, IV catheter intact.
[2019-03-16 16:00] VITALS: BP 129/92
[2019-03-16] MEDS ORDERED: OLAN2.5T1 PO (16:09)
[2019-03-16] MEDS ORDERED: FLUO10CA21 PO (16:10)
--- NOTE | 2019-03-16 17:15 | NUR ---
Spoke to pt's mother & notified her of pt's discharge order & cleared by psychiatrist. Per Kamalaemil, she will come to filler picker pt in 2-3hours.
--- NOTE | 2019-03-16 18:20 | NUR ---
Pt's mother arrived to miner pick pt. Written & verbal discharge instructions provided, both verbalized understanding to f/u with PCP & psychiatrist. Pt left unit via wheelchair, accompanied by RN & mother to front lobby. Pt amb to mother's car with standby assist. All belongings with pt upon departure.
== END 2019-03-16 18:20 | disposition home or self-care (01) | DRG 750 ==
LOC: MED 09:19 → MTU 15:34
PROVIDERS: ADMIT Internal Medicine Pulmonary Disease; ATTEND Internal Medicine Pulmonary Disease
DX: F25.9 Schizoaffective disorder, unspecified (principal)
CPT/HCPCS: 36415; 80048; 80053; 80305; 81001; 81025; 82550; 82553; 83735; 85025; 87081; 96360; 96361; 99285; G0480; G0482

== ENCOUNTER 2020-06-09 14:29 | Inpatient (IN) | payer OTHER, SELFPAY ==
[~2020-06-09] VITALS: Ht 170.2 cm; Wt 65.8 kg
[~2020-06-09 14:29] MED LIST changes: -FLUO-348 PO; +FLUO10CA21 PO; -METH500T18 PO; +OLAN2.5T1 PO; -OLAN5TAB30 PO; -TRAZ-466 PO
--- NOTE | 2020-06-09 14:29 | NUR ---
Patient BIBA BLS, transferred to bed 5. RN evaluating patient at bedside.
[2020-06-09 14:33] VITALS: BP 127/88
--- NOTE | 2020-06-09 14:35 | NUR ---
PT CAME IN BIBA WITH SELF INFLICTING BITE INJURY TO R WRIST, PT STATED HAS NOT SLEEP IN 3 DAYS. PT WAS PUT ON 5150. PT IS NOT COOPERATIVE, TRYING TO GET OUT OF BED. PT DOES NOT WANT TO ANSWER QUESTIONS. PMH: BIPOLAR, SCHIZOPHRENIA
--- NOTE | 2020-06-09 14:44 | NUR ---
Pt brother in law-- Aaron Lackey [phone]
--- NOTE | 2020-06-09 15:07 | NUR ---
Covid swabs collected and sent to lab.
--- NOTE | 2020-06-09 15:17 | NUR ---
Lab at bedside for blood draw.
[2020-06-09 15:28] LABS: BASOPHILS # (AUTO) 0.1 K/uL (0.00-0.22); BASOPHILS % (AUTO) 1.2 % (0.0-2.0); EOSINOPHILS # (AUTO) 0.1 K/uL (0-0.4); EOSINOPHILS % (AUTO) 1.4 % (0.0-4.0); HEMATOCRIT 38.3 % (36-48); LYMPHOCYTES # (AUTO) 2.1 K/uL (2.5-16.5); LYMPHOCYTES % (AUTO) 24.6 % (20.5-51.1); MEAN CORPUSCULAR HEMOGLOBIN 28 pg (27-31); MEAN CORPUSCULAR HGB CONC 34 g/dL (33-37); MEAN CORPUSCULAR VOLUME 81.3 fL (80-94); MONOCYTES # (AUTO) 0.8 K/uL (0.8-1.0); MONOCYTES % (AUTO) 9.4 % (1.7-9.3); NEUTROPHILS # (AUTO) 5.5 K/uL (1.8-7.7); NEUTROPHILS % (AUTO) 63.4 % (42.2-75.2); PLATELET COUNT (AUTO) 287 K/uL (140-450); RED BLOOD CELL COUNT(AUTO) 4.71 MIL/uL (4.20-5.40); WHITE BLOOD COUNT (AUTO) 8.7 K/uL (4.8-10.8)
--- NOTE | 2020-06-09 15:35 | NUR ---
Pt wheelchair assisted to restroom, urine collected and sent to lab.
[2020-06-09 15:47] LABS: ALBUMIN 4.1 g/dL (3.4-5.0); ANION GAP 17.5 (8-16); ASPARTATE AMINOTRANSFERASE 19 U/L (15-37); CARBON DIOXIDE 22.4 mmol/L (21-32); CHLORIDE 104 mmol/L (98-107); CREATININE 1.1 mg/dL (0.6-1.3); GFR ARICAN-AMERICAN 72 mL/min (>90); GLUCOSE 113 mg/dL (74-106); SODIUM SERUM 141 mmol/L (136-145); TOTAL BILIRUBIN 0.6 mg/dL (0.0-1.0); UREA NITROGEN, BLOOD 9 mg/dL (7-18)
[2020-06-09 15:49] LABS: POTASSIUM 2.9 mmol/L (3.5-5.1); SALICYLATE < 2.8 mg/dL (2.8-20.0)
[2020-06-09 15:50] LABS: ACETAMINOPHEN < 0.5 ug/ml (10-30)
[2020-06-09] MEDS ORDERED: POTASSIUM CHLORIDE 10 MEQ TABER PO ONE (15:50)
[2020-06-09 15:54] LABS: APPEARANCE,URINE HAZY (CLEAR); BILIRUBIN,URINE NEGATIVE (NEGATIVE); BLOOD, URINE NEGATIVE (NEGATIVE); COLOR,URINE YELLOW (YELLOW); LEUKOCYTE ESTERASE ,URINE NEGATIVE (NEGATIVE); NITRITE, URINE NEGATIVE (NEGATIVE); UGLUCOSE NEGATIVE (NEGATIVE)
[2020-06-09] MEDS ORDERED: LORazepam 1 MG TAB PO ONE (16:00)
[2020-06-09] MEDS ORDERED: OLANZapine 5 MG ODT SL ONE (16:00)
--- NOTE | 2020-06-09 16:05 | NUR ---
Dr. Stern is evaluating the patient at bedside.
--- NOTE | 2020-06-09 16:42 | NUR ---
Pt sitting upright in bed awake. 1-1 sitter remains at bedside. Will continue to monitor
--- NOTE | 2020-06-09 16:48 | NUR ---
Pt agitated, started crying and shouting in marshallese, then pt flailing her hands. Able to be verbally redirected. pt currently sitting quetly, sitter at bedside.
--- NOTE | 2020-06-09 17:46 | NUR ---
Received packet for pt. Will assist with placement
--- NOTE | 2020-06-09 17:53 | NUR ---
packet faxed to the following facilititess for review: [facility]
--- NOTE | 2020-06-09 18:19 | NUR ---
Pt restin with eyes closed, visible rise and fall of the chest. Positioned for comfort. VSS. Will continue to monitor.
--- NOTE | 2020-06-09 19:10 | NUR ---
received report from shelby onofre. will cont care at this time.
--- NOTE | 2020-06-09 19:10 | NUR ---
Report given to MERLYN Seo. Transfer of care at this time
[2020-06-09] MEDS ORDERED: BACITRACIN OINT 500 UNITS/GM PKT TP ONE ×2 (21:19→21:25)
[2020-06-09] MEDS ORDERED: DEXT 5% / NACL 0.45% 1,000 ML IV ONE (21:20)
[2020-06-09] MEDS ORDERED: KCL 20 MEQ/WATER INJ PREMIX 100 ML IV ONE (21:20)
[2020-06-09 22:05] VITALS: BP 129/94
--- NOTE | 2020-06-09 22:05 | NUR ---
Patient will be admitted to care of DR. MENDOSA. Admited to M/S. Will go to room 107B. Belongings list completed. Report to MERLYN BOSTON.
--- NOTE | 2020-06-09 22:05 | NUR ---
RECEIVED REPORT FROM ER NURSE, BULMARO. PT ARRIVED VIA WHEELCHAIR AND AMBULATED TO BED WITH ASSIST. PT AOX4 ON ROOM AIR. RESPIRATIONS EVEN AND UNLABORED. NO S/S RESPIRATORY DISTRESS. NO C/O PAIN AT THIS TIME. SKIN WARM DRY INTACT. PT HAS SELF INFLICTED WOUND HUMAN BITE ON RIGHT WRIST/FOREARM, ABRASION. BOWEL SOUNDS ACTIVE. SAFETY PRECAUTIONS IN PLACE. IV SITE LEFT HAND 20G PATENT AND INTACT. SITTER AT BEDSIDE. VS: BP 129/94 HR 89 O2 SAT 98% TEMP 98.0 RR 16. WILL CONTINUE TO MONITOR
--- NOTE | 2020-06-09 22:10 | NUR ---
ORIENTED PT TO ROOM AND HOSPITAL. DISCUSSED PLAN OF CARE. PT VERBALIZED UNDERSTANDING. WILL CONTINUE TO MONITOR
--- NOTE | 2020-06-09 22:31 | NUR ---
CONSULT ORDERED ANS SENT TEXT MESSAGE FOR HIM.
--- NOTE | 2020-06-09 23:57 | NUR ---
Call Center aware at this time there are still no vacancy at any of the designated facilities , will continue to look for placement .
[2020-06-10] VITALS: BP 115/80
--- NOTE | 2020-06-10 00:15 | NUR ---
PT ASLEEP IN BED. NO DISTRESS NOTED. WILL CONTINUE TO MONITOR
--- NOTE | 2020-06-10 02:40 | NUR ---
PT ASLEEP IN BED. EASILY AROUSABLE TO NAME AND LIGHT TOUCH. DENIES PAIN. NO DISTRESS NOTED. WILL CONTINUE TO MONITOR
[2020-06-10 04:00] VITALS: BP 131/88
--- NOTE | 2020-06-10 05:15 | NUR ---
PT ASLEEP IN BED. RESPIRATIONS EVEN AND UNLABORED. NO DISTRESS NOTED. WILL CONTINUE TO MONITOR
--- NOTE | 2020-06-10 07:20 | NUR ---
ENDORSED PT TO DAY RN FOR CONTINUITY OF CARE. PT IS IN STABLE CONDITION
--- NOTE | 2020-06-10 07:21 | NUR ---
RECEIVED ENDORSEMENT FROM BEE FARMER, ASLEEP ON BED, BREATHING SPONTANEOUSLY AT ROOM AIR. NOT IN DISTRESS NOTED. DX 5150 HOLD WITH 1:1 SITTER. WITH ONGOING IV FLUID WITH D5 1/2 NS AT 75ML/HOUR INFUSING AT LEFT HAND G 20 IV CANNULA NOTED. SAFETY MEASURES IN PLACE AND CONTINUE MONITOR
[2020-06-10 08:00] VITALS: BP 120/82
--- NOTE | 2020-06-10 08:21 | NUR ---
Received report. There are no beds at this time. [facility] still working on placement.
--- NOTE | 2020-06-10 08:39 | NUR ---
DUE TO PATIENT BEING ON 5150 HOLD, PATIENT HAS BEEN SCREENED AND CATEGORIZED LOW NUTRITION RISK. PATIENT WILL BE SEEN WITHIN 7 DAYS OF ADMISSION. 06/16/[address]
--- NOTE | 2020-06-10 09:40 | NUR ---
APPARENTLY SCREAMING AND TRYING TO BITE HERSELF. NO PRN MEDS FOR AGITATION. DR. SHAIK MIRAMONTES, AWAITING REPLY.
[2020-06-10] MEDS ORDERED: LORazepam 2 MG/ML VIAL IVP PRN (10:00)
--- NOTE | 2020-06-10 10:01 | NUR ---
DR. MCFARLANE CALLED AND MADE AWARE ABOUT PATIENT STATUS, ORDERED TO GIVE ATIVAN 1 MG IV EVERY 4HOURS PRN FOR AGITATION AND ANXIETY.
--- NOTE | 2020-06-10 10:41 | NUR ---
IV CANNULA AT LEFT HAND OCCLUDED, REMOVED AND DRESSING APPLIED. IV CANNULA G20 INSERTED ASEPTICALLY AT LEFT CEPHALIC VEIN , ASYMPTOMATIC AND INTACT NOTED. ANXIOUS NOTED, ATIVAN 1MG IV ORDERED PRN GIVEN
[2020-06-10 12:00] VITALS: BP 116/74
[2020-06-10 12:45] LABS: BASOPHILS # (AUTO) 0.1 K/uL (0.00-0.22); BASOPHILS % (AUTO) 1.2 % (0.0-2.0); EOSINOPHILS # (AUTO) 0.5 K/uL (0-0.4); EOSINOPHILS % (AUTO) 5.7 % (0.0-4.0); HEMATOCRIT 36.6 % (36-48); HEMOGLOBIN 12.3 g/dL (12.0-16.0); LYMPHOCYTES % (AUTO) 35.8 % (20.5-51.1); MEAN CORPUSCULAR HEMOGLOBIN 28 pg (27-31); MEAN CORPUSCULAR HGB CONC 34 g/dL (33-37); MEAN CORPUSCULAR VOLUME 81.9 fL (80-94); MONOCYTES # (AUTO) 0.6 K/uL (0.8-1.0); MONOCYTES % (AUTO) 7.8 % (1.7-9.3); NEUTROPHILS # (AUTO) 4.1 K/uL (1.8-7.7); NEUTROPHILS % (AUTO) 49.5 % (42.2-75.2); PLATELET COUNT (AUTO) 263 K/uL (140-450); RED BLOOD CELL COUNT(AUTO) 4.46 MIL/uL (4.20-5.40); RED CELL DISTRIBUTION WIDTH 14.5 % (11.6-13.7); WHITE BLOOD COUNT (AUTO) 8.3 K/uL (4.8-10.8)
--- NOTE | 2020-06-10 12:46 | NUR ---
SOCIAL WORK NOTE: Patient's Orientation Person Situation Place Time Information Provided By PATIENT Comments SW MET WITH PATIENT AT BEDSIDE TO COMPLETE ASSESSMENT. PATIENT DENIED CURRENT SUICIDAL IDEATIONS. PATIENT PROVIDED LIMITED RESPONSES DURING ASSESSMENT. Cordage Sales Representative, Realtionship and Phone Number TRAVIS DICKSON [phone] Healthcare Power of Boat Repairer No Does Patient Have a POLST No Identifying Problems Mental Health Is A Social Work Consult Needed No Mandate Report Filed No Explanation Of Identifying Problems PATIENT IS A 35-YEAR-OLD FEMALE ADMITTED FOR 5150. PATIENT HAS PMHX OF SCHIZOPHRENIA. PATIENT STATED THAT SHE WAS NOT CURRENTLY EXPERIENCING SI/HI AND DENIED AH/VH. PATIENT STATED THAT SHE WAS DIAGNOSED WITH BIPOLAR DISORDER. PATIENT STATED THAT SHE RECEIVES MENTAL HEALTH SERVICES FROM [facility]. PATIENT WAS UNABLE TO PROVIDE INFORMATION TO PSYCHIATRIST OR THERAPIST. PATIENT REFUSED ALL RESOURCES. Admitted From Home Prior Resources/Services Used In Last 12 Months Psychiatry Services Prior Resources/Service Comments PATIENT REPORTS RECEIVING MENTAL HEALTH SERVICES FROM [facility]. Prior DME No Prior DME Used Dialysis Comments PATIENT REPORTS NOT RECEIVING DIALYSIS. Living Situation Lives With Family House Patient Had Caregiver No Home Support No Caregiver Issues Financial Issues No Known Financial Issue Referral To The Financial Counselor Needed No Factors/Needs Psych Placement/Referral Pt/Rep Participated In Discharge Plan Yes Patient/Family Agress With Discharge Plan Yes Discharge Plan Comments TENTATIVE DISCHARGE PLAN IS FOR PATIENT TO BE DISCHARGED TO PSYCHIATRIC FACILITY. DC Plan Status Initiated
--- NOTE | 2020-06-10 12:47 | NUR ---
VITAL SIGNS TAKEN AND RECORDED, STABLE. APPARENTLY CALMED
[2020-06-10 12:54] LABS: ANION GAP 15.6 (8-16); CARBON DIOXIDE 23.1 mmol/L (21-32); CREATININE 0.7 mg/dL (0.6-1.3); POTASSIUM 3.7 mmol/L (3.5-5.1)
--- NOTE | 2020-06-10 14:48 | NUR ---
ASLEEP, NO COMPLAINED MADE.NO SIGNS OF HALLUCINATION NOTED
[2020-06-10 16:00] VITALS: BP 121/81
--- NOTE | 2020-06-10 16:38 | NUR ---
LYING ON BED, CALMED AND NO SIGNS OF SUICIDAL IDEATION.
--- NOTE | 2020-06-10 18:08 | NUR ---
APPARENTLY REMOVED HER IV CANNULA, NO BLEEDING AND DRESSING APPLIED. APPARENTLY DOESN'T WANT TO RE-INSERT A NEW IV LINE.
--- NOTE | 2020-06-10 19:11 | NUR ---
ENDORSED TO CORRECTIONAL CASEWORK SPECIALIST IN STABLE CONDITION FOR CONTINUITY OF CARE.
--- NOTE | 2020-06-10 19:12 | NUR ---
RECEIVED PATIENT IN STABLE CONDITION FROM AM SHIFT NURSE FOR CONTINUITY OF CARE. RESTING IN BED COMFORTABLY WITH EYES OPEN. RESPIRATIONS EVEN, UNLABORED. SKIN WARM, DRY. NO C/O PAIN. NO S/S ACUTE DISTRESS. NO VERBALIZATION OF SELF HARM. ABDOMEN SOFT, NONTENDER. CONTINENT OF B/B. PLAN OF CARE DISCUSSED. SAFETY PRECAUTIONS IN PLACE. SITTER AT BEDSIDE.
[2020-06-10 20:00] VITALS: BP 119/79
[2020-06-10] MEDS: OLANZapine 5 MG TAB PO SCH (20:24)
--- NOTE | 2020-06-10 21:15 | NUR ---
PATIENT ASLEEP. NO S/S ACUTE DISTRESS. DUE MEDS GIVEN. SITTER AT BEDSIDE.
--- NOTE | 2020-06-10 23:30 | NUR ---
PATIENT RESTING COMFORTABLY IN BED. NO C/O PAIN. NO S/S ACUTE DISTRESS. SITTER AT BEDSIDE.
[2020-06-11] VITALS: BP 119/66
--- NOTE | 2020-06-11 01:00 | NUR ---
PATIENT IS RESTING QUIETLY IN BED. NO S/S ACUTE DISTRESS. NO C/O PAIN. NO VERBALIZATION OF SELF HARM. SITTER AT BEDSIDE.
--- NOTE | 2020-06-11 03:08 | NUR ---
MADE ROUNDS. PATIENT IS ASLEEP. NO S/S ACUTE DISTRESS. SITTER AT BEDSIDE.
--- NOTE | 2020-06-11 04:58 | NUR ---
At this time there are still no beds available at any of the designated facilities.
--- NOTE | 2020-06-11 05:28 | NUR ---
PATIENT IS RESTING QUIETLY IN BED. PATIENT HAD AN INCONTINENT EPISODE. CARE RENDERED WITH TIANNA. MAURI AT BEDSIDE.
--- NOTE | 2020-06-11 07:05 | NUR ---
RECEIVED BEDSIDE REPORT FROM NIGHTSHIFT NURSE. PT RESTING IN BED. ABLE TO MAKE NEEDS KNOWN. RESPIRATIONS EVEN AND UNLABORED WITH NO SOB OR RESPIRATORY DISTRESS. SKIN WARM AND DRY TO TOUCH. PT REFUSED IV SITE. SAFETY MEASURES IN PLACE. WILL CONTINUE TO MONITOR
[2020-06-11 08:00] VITALS: BP 121/70
[2020-06-11] MEDS: FLUoxetine 20 MG CAP PO SCH (08:28)
--- NOTE | 2020-06-11 08:28 | NUR ---
ADMINISTERED SCHED MED PRESCRIBED PER MD ORDER. PT TOLERATED WELL. MEDICATION EDUCATION PERFORMED. PT VERBALIZED UNDERSTANDING. SAFETY MEASURES IN PLACE. WILL CONTINUE TO MONITOR
--- NOTE | 2020-06-11 11:58 | NUR ---
DISCHARGE PLANNING: [facility] CONTACTED [facility] AND SPOKE TO SHYANN [phone]. PER SHYANN, [facility] IS STILL SEEKING PSYCH PLACEMENT FOR PATIENT. Addendum: 06/12/20 at 1051 by Mitul Kuo [facility] FAXED UPDATED 5150 TO [facility] [phone]. [facility] VERIFIED WITH DAPHNEY FROM [facility] [phone] THAT 5150 WAS RECEIVED. DAPHNEY STATED THAT HE RECEIVED THEM AND WILL CONTINUE TO SEEK PSYCH PLACEMENT. Addendum: 06/13/20 at 1428 by Inga Fatima RECEIVED A CALL FROM CHARGE NURSE KRISTI, INFORMING THIS BROADCAST CHIEF ENGINEER THAT DR. MARTINEZ LIFTED THE 5150 HOLD AND PATIENT WILL BE DISCHARGING HOME. DONOVAN AT [facility] MADE AWARE.
--- NOTE | 2020-06-11 12:04 | NUR ---
HOURLY ROUNDING. PT RESTING IN BED. ABLE TO MAKE NEEDS KNOWN. RESPIRATIONS EVEN AND UNLABORED WITH NO SOB OR RESPIRATORY DISTRESS. SKIN WARM AND DRY TO TOUCH. 1:1 SITTER AT BEDSIDE. SAFETY MEASURES IN PLACE. WILL CONTINUE TO MONITOR
--- NOTE | 2020-06-11 17:39 | NUR ---
SPOKE WITH PATIENTS MOTHER ABOUT PT CONDITION. MOTHER RESPONDED AND VERBALIZED UNDERSTANDING. SAFETY MEASURES IN PLACE. WILL CONTINUE TO MONITOR
--- NOTE | 2020-06-11 19:16 | NUR ---
ENDORSED AT BEDSIDE TO NIGHTSHIFT NURSE FOR CONTINUITY OF CARE. PT IS STABLE
--- NOTE | 2020-06-11 19:17 | NUR ---
RECD. RESTING IN BED, AWAKE, A/OX2. RESPIRATION EVEN AND UNLABORED. NO IV LINE, REFUSED TO BE INSERTED A NEW LINE. SELF INFLICTED BITE AT THE RIGHT WRIST COVERED WITH BAND AID DRESSING, DRY AND INTACT. VERBALIZED THAT SHE WANTS TO GO HOME AND DENIES HEARING VOICES NOR HAVING INTENTION OF HURTING SELF OR OTHERS. PLAN OF CARE FOR THE SHIFT DISCUSSED. NODS IN UNDERSTANDING. DENIES PAIN 0/10.
[2020-06-11 20:00] VITALS: BP 126/76
--- NOTE | 2020-06-11 21:20 | NUR ---
SPONGE BATH GIVEN REQUESTED. PATIENT IS UNABLE TO DO THINGS FOR HERSELF, NOT EVEN WIPING HER PRIVATE PARTS. WITH GENERALIZED WEAKNESS. MADE COMFORTABLE IN BED AFTER THE BATH.
[2020-06-11] MEDS: OLANZapine 5 MG TAB PO SCH (21:39)
--- NOTE | 2020-06-11 21:39 | NUR ---
DUE PO MEDICATION GIVEN.
--- NOTE | 2020-06-11 22:00 | NUR ---
SLEEPING COMFORTABLY IN BED.
--- NOTE | 2020-06-11 23:00 | NUR ---
WOKE UP, ASSISTED TO GET OUT OF BED AND AMBULATE TO THE BR. GAIT STEADY BUT NEEDS ASSISTANCE TO PREVENT FROM FALLING.
--- NOTE | 2020-06-12 | NUR ---
SLEEPING COMFORTABLY IN BED.
--- NOTE | 2020-06-12 02:00 | NUR ---
STILL SLEEPING COMFORTABLY.
[2020-06-12 04:00] VITALS: BP 118/70
--- NOTE | 2020-06-12 04:30 | NUR ---
WOKE UP, VERBALIZED SHE WANTS TO GO HOME. ADVISED TO GO BACK TO SLEEP, NO ORDER YET FOR HER TO GO HOME.
--- NOTE | 2020-06-12 06:50 | NUR ---
STILL SLEEPING COMFORTABLY IN BED. SAFETY MAINTAINED DURING SHIFT.
--- NOTE | 2020-06-12 07:12 | NUR ---
ENDORSED TO AM SHIFT NURSE FOR CONTINUITY OF CARE.
--- NOTE | 2020-06-12 07:13 | NUR ---
RECEIVED REPORT FROM ENVELOPE CUTTER NURSE KERRY. PT RESTING IN BED, AOX2, ON ROOM AIR. PT HAS REFUSED IV SITE. AMBULATORY WITH ASSISTANCE. SELF INFLICTED BITE WOUND ON RIGHT WRIST-COVERED WITH BANDAID. CALL LIGHT WITHIN REACH. NO S/S OF RESPIRATORY DISTRESS OR DISCOMFORT NOTED AT THIS TIME. WILL CONTINUE TO MONITOR. Addendum: 06/12/20 at 0800 by Chanelle Maxwell RN 1:1 SITTER. PT HAS STARTED HER MENSTRUAL PERIOD. PERINEAL CARE PROVIDED, FRESH UNDERWEAR AND PAD, NEW CHUXS PROVIDED IN BED. PT TOLERATED WELL.
[2020-06-12 08:00] VITALS: BP 117/78
[2020-06-12] MEDS: FLUoxetine 20 MG CAP PO SCH (08:54)
--- NOTE | 2020-06-12 08:54 | NUR ---
SCHEDULED MEDICATION GIVEN AND TOLERATED WELL. CALL LIGHT WITHIN REACH. NO S/S OF RESPIRATORY DISTRESS OR DISCOMFORT NOTED AT THIS TIME. WILL CONTINUE TO MONITOR.
--- NOTE | 2020-06-12 11:00 | NUR ---
pt resting in bed. call light within reach. no s/s of respiratory distress or discomfort noted at this time. will continue to monitor.
--- NOTE | 2020-06-12 13:00 | NUR ---
pt continues to rest in bed. 1:1 sitter. no s/s of respiratory distress or discomfort noted at this time. will continue to monitor.
--- NOTE | 2020-06-12 15:00 | NUR ---
pt resting in bed. 1:1 sitter. no s/s of respiratory distress or discomfort noted at this time. will continue to monitor.
[2020-06-12 16:00] VITALS: BP 127/73
--- NOTE | 2020-06-12 16:07 | NUR ---
Spoke with pt mother- Alba Lackey. she mentioned that she has noticed that her daughter's mood changes when she is about to have her menstrual period. On wednesdayjune 05, she began to notice her mood changing and she was admitted to the hospital on June 09. pt's mother would like her doctors to know this. I will inform dr. Varma and Dr. Finch.
--- NOTE | 2020-06-12 18:00 | NUR ---
PT RESTING IN BED. 1:1 SITTER. NO S/S OF RESPIRATORY DISTRESS OR DISCOMFORT NOTED AT THIS TIME. WILL CONTINUE TO MONITOR.
--- NOTE | 2020-06-12 19:00 | NUR ---
ENDORSED PT CARE TO COMMERCIAL REPRESENTATIVE NURSE ALONA FOR CONTINUITY OF CARE. PT IN STABLE CONDITIONS AT THIS TIME.
--- NOTE | 2020-06-12 19:10 | NUR ---
RECEIVED BEDSIDE REPORT FROM DAY RN. PT IS AAOX4. RESPIRATIONS ARE EQUAL AND UNLABORED ON ROOM AIR. LUNG SOUNDS ARE CLEAR. PT WITH R W BITE WAS SELF INFLICTED COVERED WITH BAND-AID. BAND-AID IS C/D/I. THERE NO IV ACCESS D/T PT REFUSING. IS FULL CODE. AMBULATORY WITH ASSIST. 1:1 SITTER. CURRENTLY ON 5150. POC DISCUSSED WITH PT. CALL LIGHT IS WITHIN REACH. WILL CONTINUE TO MONITOR.
[2020-06-12] MEDS: OLANZapine 5 MG TAB PO SCH (20:13)
--- NOTE | 2020-06-12 20:13 | NUR ---
PT IS LAYING IN BED WATCHING TV. CALM AND COOPERATIVE DENIES ANY SUICIDAL IDEATION. STATES SHE IS FEELING BETTER. LACY MEDICATION GIVEN. MED EDUCATION GIVEN. PT VERBALIZED UNDERSTANDING. POC DISCUSSED WITH PT. ALL NEEDS MET. 1:1 SITTER. WILL ROUND FREQUENTLY.
--- NOTE | 2020-06-12 21:28 | NUR ---
Called the following facilities; [facility] [place] s/w Michelle-no beds [place] s/w Umm-packet faxed for transfer center [facility] no answer [facility] s/w Anastasia-has some openings-packet refaxed
--- NOTE | 2020-06-12 21:48 | NUR ---
[facility] s/w Brittaney-no beds [facility] s/w Michael-no beds [facility] s/w Cuca-packet still on file-no beds-faxed latest notes
--- NOTE | 2020-06-12 22:03 | NUR ---
PT IS SLEEPING COMFORTABLY IN BED WITH EYES CLOSED. CHEST RISE AND FALL NOTED. SAFETY MEASURES ARE IN PLACE. 1:1 SITTER AT BEDSIDE.
--- NOTE | 2020-06-13 | NUR ---
VITAL SIGNS ARE WITHIN NORMAL LIMITS. ALL NEEDS MET. CALL LIGHT IS WITHIN REACH. 1:1 SITTER. WILL CONTINUE TO MONITOR.
[2020-06-13 00:04] VITALS: BP 121/69
--- NOTE | 2020-06-13 02:10 | NUR ---
PT LAYING COMFORTABLY IN BED WITH EYES CLOSED. NO S/S OF DISTRESS. CALL LIGHT IS WITHIN REACH.
--- NOTE | 2020-06-13 07:15 | NUR ---
RECEIVED REPORT FROM SHIRT SORTER RN FOR CONTINUITY OF CARE. PT IS STABLE SITTING UP NEXT TO BED WITH NO IV ACCESS DUE TO PATIENT REFUSING SAFETY MEASURES IN PLACE. WILL CONTINUE WITH POC.
[2020-06-13] MEDS: FLUoxetine 20 MG CAP PO SCH (08:23)
--- NOTE | 2020-06-13 08:25 | NUR ---
Pt is awake and alert oriented x3 with little insight into hospitalization, denied biting self stating, "I fell." Currently eating breakfast in no distress. Respiration are even and unlabored. tolerated Prozac PO with no issues, able to communicate wants and needs. Pt lung sounds are clear, abd is round, soft and nontender pt. is on menstrual cycle and had BM this morning, denies constipation. V/S: 97.0, 74, 18, 133/84, 100% RA. Denied pain at this time. Remains on 5150 wound on right wrist area cleaned with NS and bandage applied. No bleeding or discharge. Pt currently denies SI or HI. Will continue with POC
--- NOTE | 2020-06-13 08:27 | NUR ---
Change of shift report given. Intake sent to several facilities during prior shift. Will continue to assist with placement and keep facility updated with any information.
--- NOTE | 2020-06-13 10:21 | NUR ---
Sitting up on chair next to bed, in no distress. No new injuries no self injurious behavior. Under close supervision with staff at doorway.
--- NOTE | 2020-06-13 12:25 | NUR ---
V/S: 98.2, 81, 18, 122/86, 100 RA sitting in chair about to eat lunch. In no distress. No new injuries no self injurious behaviors.
--- NOTE | 2020-06-13 14:30 | NUR ---
DISCHARGE ORDERED 5150 D/C. SPOKE WITH PT. MOTHERS WHO CALLED FOR UPDATE. MOM WAS NOTIFIED OF DISCHARGE AND SHE STATED SHE WAS ANTICIPATING HER DAUGHTER WOULD BE TRANSFERRED TO PSYCH FACILITY AND CAN NOT CHEESE SPECIALIST UNTIL 7 PM. PT IS SITTING IN HER ROOM. HAS MOMENTS OF GETTING UP AND AMBULATING AROUND HER ROOM. NO FALLS NO INJURIES NO SELF INJURIOUS BEHAVIOR.
[2020-06-13 16:17] VITALS: BP 123/76
--- NOTE | 2020-06-13 16:30 | NUR ---
PT IS SITTING UP ON CHAIR NEXT TO BED HAS MOMENTS OF GETTING UP AND WALKING TO DOOR WAY, ALL NEEDS MET AT THIS TIME. V/S: 97.9, 76, 20, 123/76, 100% RA PAIN 0/10.
--- NOTE | 2020-06-13 18:20 | NUR ---
SITTING UP IN CHAIR IN NO DISTRESS. WATCHING TV NO DTO/DTS
--- NOTE | 2020-06-13 19:54 | NUR ---
RECEIVED REPORT FROM AM NURSE. PT IS SITTING UP IN A CHAIR IN HER ROOM. PT IS ALERT AND ORIENTED X 4, BREATHING SPONTANEOUSLY ON ROOM AIR. PT IS CALM, COOPERATIVE, NO SIGNS OF INJURIOUS BEHAVIORS. PT IS WAITING FOR FAMILY TO PICK HER UP.
[2020-06-13] MEDS: OLANZapine 5 MG TAB PO SCH (20:25)
--- NOTE | 2020-06-13 20:32 | NUR ---
PT DC FROM UNIT. PT'S MOTHER IS HERE TO PICK HER UP. WRIST BAND REMOVED. DISCHARGE INFORMATION WAS GIVEN TO THE PT. PT VERBALIZED UNDERSTANDING.
== END 2020-06-13 20:30 | disposition home or self-care (01) | DRG 750 ==
LOC: MED 14:29 → MTU 21:42
PROVIDERS: ADMIT Internal Medicine; ATTEND Internal Medicine
DX: F25.9 Schizoaffective disorder, unspecified (principal); R41.0 Disorientation, unspecified; F94.0 Selective mutism; Z20.828 Contact with and (suspected) exposure to other viral communicable diseases; F31.9 Bipolar disorder, unspecified; R45.851 Suicidal ideations; S61.511A Laceration without foreign body of right wrist, initial encounter; X78.9XXA Intentional self-harm by unspecified sharp object, initial encounter; Y93.89 Activity, other specified; Y92.89 Other specified places as the place of occurrence of the external cause; Y99.8 Other external cause status
CPT/HCPCS: 36415; 80048; 80053; 81003; 81025; 85025; 87081; 93005; 96365; 99285; G0480; G0482; J2060; J3480; U0003-CS

== ENCOUNTER 2022-07-07 09:06 | Emergency (ER) | payer OTHER ==
[~2022-07-07] VITALS: Ht 170.2 cm; Wt 61.2 kg
--- NOTE | 2022-07-07 09:06 | NUR ---
David massey in [facility] - 07/07/22 at 0936 by PHSEP MOLLY TO BED 6
--- NOTE | 2022-07-07 09:07 | NUR ---
BIBA BLS TO ER BED 6
--- NOTE | 2022-07-07 09:32 | NUR ---
pt swabbed for covid(novel/jaclyn). handed to lab
[2022-07-07 09:39] VITALS: BP 134/84
--- NOTE | 2022-07-07 10:00 | NUR ---
28YO FEMALE PT MOLLY FROM HOME ON 5150 HOLD. PER PD, PT WAS AGGRESSIVE W/ FAMILY AND PD ON SCENE "I WANT TO KILL THE ASSET ADMINISTRATOR". PT RECEIVED W/ 4 POINT RESTRAINT AND REMOVED ON TRANSFER TO BED. PT STATES SHE WAS "MAD AT BROTHER BECAUSE HES FROM A DIFFERENT DAD" "I WANT TO KILL HIM". STATES HX OF SI AND WOULD "BITE HERSELF " OR "TAKE EXTRA PILLS". STATES TAKING EXTRA PILLS X3DAYS AGO. ROOM STRIPPED OF POTENTIAL HARMFUL ITEMS . PT CHANGED INTO GOWN AND IN VIEW. BED AT LOWEST POSITION, BED RAILS UPX 2. HX:BIPOLAR, CEREBRAL PALSY NKA Addendum: 07/07/22 at 1308 by PHSEP DENIES VISUAL OR AUDITORY HALLUCINATIONS. DENIES SI THOUGHTS AT THIS TIME
[2022-07-07] MEDS ORDERED: LORazepam 1 MG TAB PO ONE (10:15)
[2022-07-07] MEDS: FLUoxetine 20 MG CAP PO SCH ×2 (10:20→22:23)
[2022-07-07 10:21] LABS: APPEARANCE,URINE CLEAR (CLEAR); BILIRUBIN,URINE NEGATIVE (NEGATIVE); BLOOD, URINE 3+ (NEGATIVE); COLOR,URINE YELLOW (YELLOW); LEUKOCYTE ESTERASE ,URINE NEGATIVE (NEGATIVE); NITRITE, URINE NEGATIVE (NEGATIVE); UGLUCOSE NEGATIVE (NEGATIVE)
[2022-07-07 10:33] LABS: BARBITURATE, URINE NEGATIVE ng/ml (NEG <=200); BENZODIAZEPINE, URINE NEGATIVE ng/mL (NEG <=200); CANNABINOID, URINE NEGATIVE ng/mL (NEG <=50); COCAINE, URINE NEGATIVE ng/mL (NEG <=300); OPIATE, URINE NEGATIVE ng/mL (NEG <=2000); PHENCYCLIDINE SCREEN,URINE NEGATIVE ng/mL (NEG <=25)
[2022-07-07 10:38] LABS: WBC,URINE 0-5 /HPF (0-5)
[2022-07-07 10:39] LABS: RBC,URINE 11-20 (MOD) /HPF (0-5)
[2022-07-07 11:06] LABS: BASOPHILS % (AUTO) 0.4 % (0.0-2.0); EOSINOPHILS # (AUTO) 0.1 K/uL (0-0.4); EOSINOPHILS % (AUTO) 0.5 % (0.0-4.0); HEMATOCRIT 42.4 % (36-48); HEMOGLOBIN 14.3 g/dL (12.0-16.0); LYMPHOCYTES # (AUTO) 1.6 K/uL (2.5-16.5); LYMPHOCYTES % (AUTO) 13.2 % (20.5-51.1); MEAN CORPUSCULAR HEMOGLOBIN 27 pg (27-31); MEAN CORPUSCULAR HGB CONC 34 g/dL (33-37); MONOCYTES # (AUTO) 0.6 K/uL (0.8-1.0); MONOCYTES % (AUTO) 5.1 % (1.7-9.3); NEUTROPHILS # (AUTO) 9.6 K/uL (1.8-7.7); NEUTROPHILS % (AUTO) 80.8 % (42.2-75.2); PLATELET COUNT (AUTO) 319 K/uL (140-450); RED BLOOD CELL COUNT(AUTO) 5.24 MIL/uL (4.20-5.40); RED CELL DISTRIBUTION WIDTH 14.9 % (11.6-13.7); WHITE BLOOD COUNT (AUTO) 11.9 K/uL (4.8-10.8)
[2022-07-07 11:49] LABS: ALBUMIN 3.9 g/dL (3.4-5.0); ASPARTATE AMINOTRANSFERASE 28 U/L (15-37); CARBON DIOXIDE 21.6 mmol/L (21-32); CHLORIDE 103 mmol/L (98-107); CREATININE 0.8 mg/dL (0.6-1.3); GFR ARICAN-AMERICAN 103 mL/min (>90); GLUCOSE 143 mg/dL (74-106); POTASSIUM 3.6 mmol/L (3.5-5.1); SODIUM SERUM 139 mmol/L (136-145); TOTAL BILIRUBIN 0.9 mg/dL (0.0-1.0); UREA NITROGEN, BLOOD 7 mg/dL (7-18)
[2022-07-07 11:50] LABS: ACETAMINOPHEN < 0.5 ug/ml (10-30); SALICYLATE < 2.8 mg/dL (2.8-20.0)
--- NOTE | 2022-07-07 12:00 | NUR ---
pt provided with lunch. pt awake and eating in bed
[2022-07-07] MEDS ORDERED: metroNIDAZOLE 500 MG/NS PREMIX 100 ML IV ONE (14:50)
[2022-07-07] MEDS ORDERED: LEVOFLOXACIN 500 MG/D5W PREMIX 100 ML IV ONE (14:51)
--- NOTE | 2022-07-07 15:32 | NUR ---
PT ON TELEPSYCH CALL W/ MD AGUILA
--- NOTE | 2022-07-07 17:44 | NUR ---
pt provided w/ dinner . pt awake and eating in bed
--- NOTE | 2022-07-07 19:29 | NUR ---
REPORT GIVEN TO SAMANTHA ALFARO. TRANSFER OF CARE AT THIS TIME
--- NOTE | 2022-07-07 19:30 | NUR ---
SITTER AT BEDSIDE
--- NOTE | 2022-07-07 19:34 | NUR ---
PT A&OX4 RESP EVEN AND UNLABORED. SITTER AT BEDSIDE. SKIN WARM AND DRY . VS OBTAINED AND WNL. ALL ITEMS ARE REMOVED FROM ROOM FOR PTS SAFETY. PT IS IN VIEW FROM NURSES STATION. PT HAS HX OF CP , GAIT UNSTEADY AMBULATE WITH ASSIST NEEDED NKDA BIPLOAR CP
--- NOTE | 2022-07-07 21:56 | NUR ---
PT SLEEPING. RESP EVEN AND UNLABORED. SITTER AT BEDSIDE
--- NOTE | 2022-07-08 00:16 | NUR ---
PT IS ASLEEP SITTER AT BEDSIDE. RESP EVEN AND UNLABORED
--- NOTE | 2022-07-08 02:10 | NUR ---
PT IS RESTING IN BED. SITTER STEPPED AWAY. CURTAIN TO ROOM OPEN , PT IN VIEW FROM NURSES STATION
--- NOTE | 2022-07-08 02:20 | NUR ---
sitter is back.
--- NOTE | 2022-07-08 04:00 | NUR ---
pt is resting with equal rise and fall of chest wall. all needs met. sitter at bed side.
--- NOTE | 2022-07-08 05:37 | NUR ---
pt ambulated to rr and back to bed
--- NOTE | 2022-07-08 06:49 | NUR ---
pt is resting with equal rise and fall of chest wall. all needs met. sitter at bed side.
--- NOTE | 2022-07-08 07:21 | NUR ---
Report recieved from MERLYN Stone for transfer of care.
--- NOTE | 2022-07-08 07:55 | NUR ---
Patient was offered breakfast tray. Patient is sitting up on bed eating.
--- NOTE | 2022-07-08 07:58 | NUR ---
Per previous shift Nile, packet faxed to: [facility] Delarosa [facility] [place] [facility]
--- NOTE | 2022-07-08 09:15 | NUR ---
Patient was offered snacks.
--- NOTE | 2022-07-08 10:30 | NUR ---
Patient is resting in bed, respirations even and unlabored. No signs of distress.
--- NOTE | 2022-07-08 12:03 | NUR ---
Patient was offered her lunch tray, patient is sitting up on bed eating.
--- NOTE | 2022-07-08 14:07 | NUR ---
Patient ambulated to restroom.
--- NOTE | 2022-07-08 15:35 | NUR ---
Patient is resting in bed, respirations even and unlabored. Sitter at bedside.
--- NOTE | 2022-07-08 17:45 | NUR ---
Patient ambulated to restroom with steady gait.
--- NOTE | 2022-07-08 19:12 | NUR ---
Report given to MERLYN Marquez for transfer of care.
--- NOTE | 2022-07-08 20:00 | NUR ---
Received sitting @ bedside, in no distress, awake, alert, denies homicidal or suicidal ideation, remains on [id number] hold
--- NOTE | 2022-07-08 22:43 | NUR ---
PATIENT AMBULATED TO AND BACK TO BED 6 WITH STEADY GAIT
--- NOTE | 2022-07-08 23:38 | NUR ---
DAX AMBULATED TO AND BACK TO BED 6 WITH STEADY GAIT.
--- NOTE | 2022-07-08 23:41 | NUR ---
PATIENT RQ NEW WARM LINEN AND STATED THAT SHE WAS GOING TO SLEEP.
--- NOTE | 2022-07-09 02:06 | NUR ---
Note [facility] in EDM - 07/09/22 at 0209 by DENNY 56/F BIB SELF C/C ABD PAIN [id number]. PATIETN REPORTS PAIN IN LOWER ABD AND RAD TO BLE S/P HAVING COVID. DENIES N/V/D/C/FEVER/CHILLS. PATIENT REPORTS SMOKING METH TO RELIEF PAIN X5HRS AGO, BUT IT WASNT EFFECTIVE. DENIES PMHX, RX NKA
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
--- NOTE | 2022-07-09 07:12 | NUR ---
REPORT GIVEN TO DOMINIC CANNON. TRANSFER OF CARE.
--- NOTE | 2022-07-09 07:57 | NUR ---
PT IS HAVING BREAKFAST.
--- NOTE | 2022-07-09 11:00 | NUR ---
PT SPOKE WITH DR AGUILA PSYCHIATRIST VIA TELE PSYCH. PER DR ARREGUIN IS CLEAR TO GO HOME IF THE PATIENTS MOTHER WILLING TO PICK HER UP AND IF NOT SHE NEEDS TO BE MOVED TO [facility]. HE WILL BE SENDTING HER HOME WITH ZYPREXA 5 MG PO AND PROZAC [address] AUSTIN KNOW.
--- NOTE | 2022-07-09 11:13 | NUR ---
CALLED THE PATIENTS MOTHER TRAVIS FOR THE PT TO BE PICKED UP WITH NO ANSWER. I ALSO CALLED THE BROTHER ARNAV IS THE NEXT PERSON ON HER CONTACT LIST, BECAUSE OF TRANSPORTATION REASON HE IS NOT ABLE TO PICK HER UP NOW ONLY AFTER 4 PM TODAY. WE OFFER TO SENT HER HOME VIA [facility] BUT PER BROTHER HE NEEDS TO CHECK WITH THE MOM TO MAKE SURE SHE IS HOME AND WILL CALL ME BACK. WILL FOLLOW UP WITH THE BROTHER IN TWO HOURS.
--- NOTE | 2022-07-09 11:56 | NUR ---
PT IS HAVING LUNCH.
--- NOTE | 2022-07-09 12:38 | NUR ---
CALLED THE PT MOTHER TRAVIS AT [phone] AND BROTHER DIDIER AT [phone] TO FOLLOW UP ON INSIDE SALES TIME BUT NO ANSWER FROM BOTH. DID LEAVE A MESSAGE FOR THE BROTHER.
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
--- NOTE | 2022-07-09 15:45 | NUR ---
TN RESTING IN BED, EYES CLOSED, NO C/O AT THIS TIME. ALL NEEDS MEET AT THIS TIME.
[2022-07-09 17:12] VITALS: BP 130/71
--- NOTE | 2022-07-09 17:13 | NUR ---
Patient discharged with v/s stable. Written and verbal after care instructions given and explained. Patient verbalized understanding. Wheel Chair Assisted with to home. All questions addressed prior to discharge. Advised to follow up with PMD.
--- NOTE | 2022-07-09 17:21 | NUR ---
The patient's care was reviewed and supervised by Gabi Everett RN.
[2022-07-09] MEDS ORDERED: FLUO10CA21 PO (17:32)
[2022-07-09] MEDS ORDERED: OLAN2.5T1 PO (17:32)
== END 2022-07-07 17:21 | disposition home or self-care (01) ==
LOC: MED 09:06
DX: F31.9 Bipolar disorder, unspecified (principal); Z20.822 Contact with and (suspected) exposure to COVID-19; G80.9 Cerebral palsy, unspecified; F32.9 Major depressive disorder, single episode, unspecified; Z79.899 Other long term (current) drug therapy; Z98.890 Other specified postprocedural states
CPT/HCPCS: 36415; 80053; 80305; 81001; 81025; 85025; 87086; 87426; 87635; 99283; C9803; G0480; G0482; J1956; J3490

== ENCOUNTER 2022-07-13 08:35 | Emergency (ER) | payer OTHER ==
[~2022-07-13] VITALS: Ht 170.2 cm; Wt 61.2 kg
[2022-07-13 08:45] VITALS: BP_SYST 124; BP_SYST 178; BP_DIAS 86; BP_DIAS 96
--- NOTE | 2022-07-13 10:00 | NUR ---
PT RECEIVED, CARE ASSUMED. PT IN ROOM ANXIOUS. PT EXHIBITING BIZARRE BEHAVIOUR. PT DENIES WANTING TO HURT SELF. AWAITING TO BE SEEN BY
[2022-07-13] MEDS ORDERED: LORazepam 2 MG/ML VIAL ONE (10:25)
[2022-07-13] MEDS ORDERED: LORazepam 2 MG/ML VIAL IM/IVP ONE (10:25)
--- NOTE | 2022-07-13 10:35 | NUR ---
PER PT MEDICALLY CLEARED AND DC HOME
--- NOTE | 2022-07-13 10:44 | NUR ---
SPOKE TO TRAVIS MOTHER, MOTHER AWARE OF PT RETURNING TO HOME FOR DC HOME.
[2022-07-13 11:33] VITALS: BP 129/80
--- NOTE | 2022-07-13 11:35 | NUR ---
Patient discharged with v/s stable. Written and verbal after care instructions given and explained. Patient verbalized understanding. Wheel Chair Assisted with to car. All questions addressed prior to discharge. Advised to follow up with PMD.
== END 2022-07-13 11:33 | disposition home or self-care (01) ==
LOC: MED 08:35
DX: F31.9 Bipolar disorder, unspecified (principal); F20.9 Schizophrenia, unspecified; M25.531 Pain in right wrist; R41.82 Altered mental status, unspecified; Z79.899 Other long term (current) drug therapy
CPT/HCPCS: 96372; 99283; J2060

== ENCOUNTER 2023-01-01 07:58 | Emergency (ER) | payer OTHER ==
[~2023-01-01] VITALS: Ht 157.5 cm; Wt 72.6 kg
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
[2023-01-01 08:33] VITALS: BP 132/84
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
[2023-01-01] MEDS ORDERED: ACET-11169 PO (09:08)
[2023-01-01 09:26] VITALS: BP 132/84
--- NOTE | 2023-01-01 09:26 | NUR ---
PT WALKED TO ED FARRUKH
--- NOTE | 2023-01-01 09:26 | NUR ---
gave mother's phone number to call for black pickler, pt alert x 4, given resource packet. ambulates with steady gait
== END 2023-01-01 09:26 | disposition home or self-care (01) ==
LOC: MED 07:58
DX: S09.90XA Unspecified injury of head, initial encounter (principal); Z79.899 Other long term (current) drug therapy; Y08.89XA Assault by other specified means, initial encounter; Y93.89 Activity, other specified; Y92.009 Unspecified place in unspecified non-institutional (private) residence as the place of occurrence of the external cause; Y99.8 Other external cause status
CPT/HCPCS: 90471; 90715; 99282; 99283